=== PATIENT | male | born 1980 | race Caucasian/White ===

== ENCOUNTER 2017-01-01 19:41 | Emergency (ER) ==
[2017-01-01 19:54] VITALS: BP 140/77; BMI 48.7
[2017-01-01] MEDS ORDERED: PROTONIX IV IVP STA (19:56)
[2017-01-01] MEDS ORDERED: SODIUM CHLORIDE 1,000 ML IV STA (19:56)
[2017-01-01] MEDS ORDERED: ZOFRAN 4 MG/2 ML IVP STA (19:56)
--- NOTE | 2017-01-01 20:03 | ED.PDOC ---
General ED Provider: Dr. BRET SHEPPARD Chief Complaint: Abdominal Pain Stated Complaint: Patient is a 36 year old male who comes to the ER Complains of Upper bilatearal abdominal pain has been having some cough over the last month but denies any shortness of breath. Time Seen by Physician: 20:00 Mode of Arrival: Walk-In Information Source: Patient, Family Exam Limitations: No limitations Primary Care Provider: KIMBERLEY RILEY Nursing and Triage Documentation Reviewed and Agree: Yes Review of Systems - Review Of Systems Constitutional: Reports: No symptoms Eyes: Reports: No symptoms Ears, Nose, Mouth, Throat: Reports: No symptoms Respiratory: Reports: No symptoms Cardiac: Reports: No symptoms GI: Reports: Abdomen distended (feels blotted ), Abdominal pain, Nausea. Denies : Constipated, Diarrhea, Difficulty swallowing, Vomiting : Reports: No symptoms Musculoskeletal: Reports: No symptoms Skin: Reports: No symptoms Neurological: Reports: No symptoms Endocrine: Reports: No symptoms Hematologic/Lymphatic: Reports: No symptoms All Other Systems: Reviewed and Negative Past Medical History - Past Medical History Previously Healthy: Yes Endocrine: Reports: None Cardiovascular: Reports: None Respiratory: Reports: None Hematological: Reports: None Gastrointestinal: Reports: None Genitourinary: Reports: None Neuro/Psych: Reports: None Musculoskeletal: Reports: None Cancer: Reports: None - Surgical History General Surgical History: Reports: Other (RIGHT HEEL SURGRY. RIGHT SHOULDER DISLOCATION. ) - Family History Family History: Reports: Hypertension, Other (call stones, obesity ) - Social History Smoking Status: Current every day smoker Hx Substance Use: No Alcohol Screening: None - Immunizations Tetanus Shot up to Date: No Physical Exam - Physical Exam Appearance: Ill-appearing, Obese Ill-appearing: Moderate Pain Distress: Severe Eyes: JANETH, EOMI, Conjunctiva clear Neck: Supple Respiratory: Airway patent, Breath sounds clear, Breath sounds equal, Respirations nonlabored Cardiovascular: Pulses normal, Tachycardia GI/: Tender Skin: Warm, Dry Neurological: Sensation intact, Alert, Oriented Psychiatric: Anxious Interpretation - Radiology Interpretation Radiology Interpretation By: Radiologist Radiology Results: Positive Exam Interpreted: CT Scan Radiology Interpretation By: ED Physician Radiology Results: Positive Exam Interpreted: Portable CXR - [employer] Rate: Tachy Rhythm: Sinus Ectopy: None - EKG Interpretation Time of EKG #1: 23:03 Rate: Tachy Rhythm: Sinus Ectopy: None Interpretation: Anterior infact Age undetermined Procedures - Intubation Indication: Present: Respiratory Insufficiency Time of Intubation: 01:00 Medications: Yes: Norcuron, Succinylcholine, Versed, Propofol Type of Tube Used: Endotracheal Tube Size: 7.5 Cricoid Pressure Used: No Tube Hernandez Used: Yes Position of Tube at Lip: 20 Number of Attempts: 1 Suction Used: No Glidescope Used: No CO2 Detector Used: Yes Lung Sounds Equal Bilaterally: Yes Intubation Complications: Present: No complications Tube Inserted By: Mahin Cristobal Tube Placement Verified by X-ray: Yes (2 cm above the amado ) Re-Evaluation - Re-Evaluation Time of Re-Evaluation: 12:15 Status: Worse (ABG worse. ) - Re-Evaluation Time of Re-Evaluation: 01:54 Status: Improved (Resting comfortably on the VENT ) Vital Signs Stable: Yes (T 96.5, BP 97/64, Sat 100%, 95 ) Physician Notification - Case Discussed Physician Notified: Dr BASS Time of Notification: 01:16 (Accepted to ICU ) Critical Care Note - Critical Care Note Total Time (mins): 120 Course - Course Hematology/Chemistry: 01/01/17 20:00 01/01/17 20:00 Orders, Labs, Meds: Lab Review 01/01/17 01/01/17 01/01/17 20:00 22:00 22:16 WBC 19.64 H RBC 4.54 L Hgb 13.1 L Hct 39.4 L MCV 86.8 MCH 28.9 MCHC 33.2 RDW Coeff of Joselin 13.8 Plt Count 312 Immature Gran % (Auto) 0.6 Neut % (Auto) 83.7 Lymph % (Auto) 8.9 L Nolan % (Auto) 6.2 Eos % (Auto) 0.2 Baso % (Auto) 0.4 Immature Gran # (Auto) 0.1 Neut # 16.5 H Lymph # 1.7 Nolan # 1.2 Eos # 0.0 Baso # 0.1 D-Dimer (Manual) 384.95 Puncture Site Rb O2 Saturation 51.0 L ABG pH 7.253 L* ABG pCO2 64.8 H ABG pO2 32.0 L* ABG HCO3 28.6 H ABG Total CO2 31 H ABG Base Excess 1 Talon Test + O2 Delivery Device FiO2 % 21.0 Sodium 134 L Potassium 4.3 Chloride 98 Carbon Dioxide 27 Anion Gap 13.3 BUN 13 Creatinine 1.00 Estimated GFR (MDRD) 84.00 BUN/Creatinine Ratio 13.00 Glucose 166 H Lactic Acid 9.9 Calcium 9.1 Total Bilirubin 2.01 H Direct Bilirubin 0.72 H AST 45 H ALT 61 Alkaline Phosphatase 71 Total Protein 7.2 Albumin 3.4 Globulin 3.8 Albumin/Globulin Ratio 0.89 Amylase 30 Lipase 4 L Procalcitonin 0.30 01/02/17 00:15 WBC RBC Hgb Hct MCV MCH MCHC RDW Coeff of Joselin Plt Count Immature Gran % (Auto) Neut % (Auto) Lymph % (Auto) Nolan % (Auto) Eos % (Auto) Baso % (Auto) Immature Gran # (Auto) Neut # Lymph # Nolan # Eos # Baso # D-Dimer (Manual) Puncture Site Rrad O2 Saturation 100.0 ABG pH 7.349 L ABG pCO2 52.4 H ABG pO2 418.0 H ABG HCO3 28.8 H ABG Total CO2 30 H ABG Base Excess 3 H Talon Test + O2 Delivery Device Vent FiO2 % 100.0 Sodium Potassium Chloride Carbon Dioxide Anion Gap BUN Creatinine Estimated GFR (MDRD) BUN/Creatinine Ratio Glucose Lactic Acid Calcium Total Bilirubin Direct Bilirubin AST ALT Alkaline Phosphatase Total Protein Albumin Globulin Albumin/Globulin Ratio Amylase Lipase Procalcitonin Orders Category Date Time Status ABG DRAW REQUEST Stat CARDIO 01/01/17 22:16 Ordered ABG DRAW REQUEST Stat CARDIO 01/01/17 22:56 Ordered BIPAP Routine CARDIO 01/03/17 23:20 Ordered EKG-(ED ONLY) Stat CARDIO 01/01/17 22:18 Ordered NEBULIZER TREATMENT Stat CARDIO 01/01/17 22:16 Ordered VENTILATOR Stat CARDIO 01/02/17 00:41 Ordered ED IV/MEDIPORT/POWERPORT .ONCE EMERGENCY 01/01/17 19:56 Active Mitchell [ED CATHETER INSERTION AND CARE] .ONCE EMERGENCY 01/02/17 01:53 Active ABG DAILY@0600 LAB 01/02/17 06:00 Ordered ABG DAILY@0600 LAB 01/03/17 06:00 Ordered ABG DAILY@0600 LAB 01/04/17 06:00 Ordered ABG DAILY@0600 LAB 01/05/17 06:00 Ordered ABG Stat LAB 01/01/17 22:16 Completed ABG Stat LAB 01/01/17 22:56 Completed AMYLASE Stat LAB 01/01/17 20:00 Completed BILIRUBIN,DIRECT Stat LAB 01/01/17 20:00 Completed BLOOD CULTURE Stat LAB 01/01/17 22:00 Received CBC W/ AUTO DIFF Stat LAB 01/01/17 20:00 Completed COMPREHENSIVE METABOLIC PANEL Stat LAB 01/01/17 20:00 Completed D-DIMER Stat LAB 01/01/17 20:00 Completed LACTIC ACID Stat LAB 01/01/17 22:00 Completed LIPASE Stat LAB 01/01/17 20:00 Completed PROCALCITONIN Stat LAB 01/01/17 22:00 Completed URINALYSIS C & S IF INDICATED Stat LAB 01/01/17 19:56 Uncollected 0.9 % Sodium Chloride [Saline Flush] MEDS 01/01/17 19:56 Ordered 1 syr IVF PRN PRN Ceftriaxone Sodium [Rocephin] MEDS 01/01/17 22:09 Discontinued 1 gm .ROUTE .STK-MED ONE Ceftriaxone Sodium [Rocephin] 1 gm MEDS 01/01/17 21:54 Discontinued 0.9 % Sodium Chloride [Sodium Chloride] 50 ml IV ONCE Doxycycline Hyclate Inj [Doxy-100] 100 mg MEDS 01/01/17 21:54 Discontinued 0.9 % Sodium Chloride [Sodium Chloride] 250 ml IV ONCE Fentanyl Amp [Sublimaze] MEDS 01/02/17 00:42 Discontinued 100 mcg .ROUTE .STK-MED ONE Fentanyl Amp [Sublimaze] MEDS 01/02/17 00:37 Discontinued 100 mcg IVP ONCE STA Hydromorphone HCl [Dilaudid 1 mg/ml Syringe] MEDS 01/01/17 20:32 Discontinued 1 mg IVP ONCE STA Ipratropium/Albuterol Neb [Duoneb] MEDS 01/01/17 22:16 Discontinued 1 vial NEB ONCE STA Ketorolac Tromethamine [Toradol] MEDS 01/01/17 20:33 Discontinued 30 mg IVP ONCE STA Lidocaine HCl [Uro-Jet] MEDS 01/02/17 01:53 Discontinued 10 ml MUCOUSMEMB ONCE STA Midazolam HCl Inj [Versed] MEDS 01/02/17 00:41 Discontinued 5 mg .ROUTE .STK-MED ONE Midazolam HCl Inj [Versed] MEDS 01/02/17 00:37 Discontinued 5 mg IVP ONCE STA Ondansetron HCl/Pf [Zofran 4 mg/2 ml] MED 01/01/17 19:56 Discontinued 4 mg IVP ONCE STA Pantoprazole Sodium [Protonix IV] MED 01/01/17 19:56 Discontinued 40 mg IVP ONCE STA Premix Vial [Premix Infusion 100 ml Vial] 1 vial [facility] 01/02/17 02:00 Ordered Propofol Inj [Diprivan 100 ml Vial] 1,000 mg IV 100 mcg/kg/min Propofol Inj [Diprivan 100 ml Vial] 100 ml MED 01/02/17 01:56 Discontinued IV .STK-MED Sodium Chloride 0.9% [Sodium Chloride] 1,000 ml MED 01/01/17 19:56 Discontinued IV BOLUS Succinylcholine Chloride [Anectine] MED 01/02/17 00:37 Discontinued 120 mg IVP ONCE STA Succinylcholine Chloride [Anectine] [facility] 01/02/17 00:41 Discontinued 20 mg .ROUTE .STK-MED ONE Succinylcholine Chloride [Anectine] MED 01/02/17 00:37 Discontinued 50 mg IVP ONCE STA Vecuronium [place] [Norcuron] [facility] 01/02/17 00:42 Discontinued 10 mg .ROUTE .STK-MED ONE Vecuronium [place] [Norcuron] [facility] 01/02/17 02:01 Stat 3 mg IVP ONCE STA Vecuronium [place] [Norcuron] [facility] 01/02/17 00:37 Discontinued 5 mg IVP ONCE STA Vecuronium [place] [Norcuron] [facility] 01/02/17 02:09 Stat 7 mg IVP ONCE STA CHEST, 1V AP ONLY Stat RADS 01/02/17 00:[address] ABD/PEL WO RENAL STONE PROT Stat RADS 01/01/17 19:[address] CHEST W/O CONTRAST Stat RADS 01/01/17 20:04 Completed Medications Generic Name Dose Route Start Last Admin Trade Name Freq PRN Reason Stop Dose Admin Propofol 1,000 mg/ Sterile 100 mls @ 89.81 mls/hr 01/02/17 02:00 01/02/17 02: 02 Water IV 50 mcg/kg/min .Q1H7M JACINDA 44.9 mls/hr Protocol Administration 100 MCG/KG/MIN Sodium Chloride 1 syr 01/01/17 19:56 Saline Flush IVF PRN PRN To flush IV Discontinued Medications Generic Name Dose Route Start Last Admin Trade Name Eulalia PRN Reason Stop Dose Admin Albuterol/Ipratropium 1 vial 01/01/17 22:16 01/01/17 22:44 Duoneb NEB 01/01/17 22:17 1 vial ONCE STA Administration Fentanyl Citrate 100 mcg 01/02/17 00:37 01/02/17 01:00 Sublimaze IVP 01/02/17 00:38 100 mcg ONCE STA Administration Hydromorphone HCl 1 mg 01/01/17 20:32 01/01/17 20:39 Dilaudid 1 Mg/Ml Syringe IVP 01/01/17 20:33 1 mg ONCE STA Administration Sodium Chloride 1,000 mls @ 1,000 mls/hr 01/01/17 19:56 Sodium Chloride IV 01/01/17 20:55 BOLUS STA Ceftriaxone Sodium 1 gm/ 50 mls @ 75 mls/hr 01/01/17 21:54 01/01/17 22:23 Sodium Chloride IV 01/01/17 22:33 75 mls/hr ONCE STA Administration Doxycycline Hyclate 100 mg/ 250 mls @ 100 mls/hr 01/01/17 21:54 01/01/17 23: 51 Sodium Chloride IV 01/02/17 00:23 100 mls/hr ONCE STA Administration Ketorolac Tromethamine 30 mg 01/01/17 20:33 01/01/17 20:39 Toradol IVP 01/01/17 20:34 30 mg ONCE STA Administration Lidocaine HCl 10 ml 01/02/17 01:53 01/02/17 02:01 Uro-Jet MUCOUSMEMB 01/02/17 01:54 10 ml ONCE STA Administration Midazolam HCl 5 mg 01/02/17 00:37 01/02/17 01:00 Versed IVP 01/02/17 00:38 5 mg ONCE STA Administration Ondansetron HCl 4 mg 01/01/17 19:56 01/01/17 20:19 Zofran 4 Mg/2 Ml IVP 01/01/17 19:57 4 mg ONCE STA Administration Pantoprazole Sodium 40 mg 01/01/17 19:56 01/01/17 20:18 Protonix Iv IVP 01/01/17 19:57 40 mg ONCE STA Administration Succinylcholine Chloride 50 mg 01/02/17 00:37 Anectine IVP 01/02/17 00:38 ONCE STA Succinylcholine Chloride 120 mg 01/02/17 00:37 01/02/17 01:05 Anectine IVP 01/02/17 00:38 120 mg ONCE STA Administration Vecuronium [place] 5 mg 01/02/17 00:37 01/02/17 01:00 Norcuron IVP 01/02/17 00:38 5 mg ONCE STA Administration Vecuronium [place] 3 mg 01/02/17 02:01 Norcuron IVP 01/02/17 02:02 ONCE STA Vecuronium [place] 7 mg 01/02/17 02:09 Norcuron IVP 01/02/17 02:10 ONCE STA Vital Signs: Temp Pulse Resp BP Pulse Ox 01/01/17 23:40 98 01/01/17 22:20 98.5 F 01/01/17 19:42 98.9 F 124 H 20 140/77 92 L Departure - Departure Time of Disposition: 02:11 Disposition: TSF SHORT-TRM HOSP Discharge Problem: Abdominal pain Pneumonia Qualifiers: Pneumonia type: due to unspecified organism Laterality: bilateral Lung location : lower lobe of lung Qualifier Code: (J18.9) Pneumonia, unspecified organism Respiratory failure Qualifiers: Chronicity: acute Respiratory failure complication: hypoxia and hypercapnia Qualifier Code: (J96.01) Acute respiratory failure with hypoxia Condition: Fair Pt referred to PMD for follow-up: No Allergies/Adverse Reactions: Allergies No Known Allergies Allergy (Unverified 01/01/17 19:51) Home Medications: Ambulatory Orders 1 [No Reported Medications] 01/01/17
[2017-01-01 20:09] LABS: BASOPHILS # (AUTO) 0.1 K/uL (0-0.2); BASOPHILS % (AUTO) 0.4 % (0.0-3.0); EOSINOPHILS % (AUTO) 0.2 % (0.0-7.0); HEMATOCRIT 39.4 % (42.0-52.0); HEMOGLOBIN 13.1 g/dl (14.0-18.0); IMMATURE GRANULOCYTE % (AUTO) 0.6 % (0.0-5.0); LYMPHOCYTES # (AUTO) 1.7 K/uL (0.60-3.4); LYMPHOCYTES % (AUTO) 8.9 (10.0-50.0); MEAN CORPUSCULAR HEMOGLOBIN 28.9 pg (27.0-31.0); MEAN CORPUSCULAR HGB CONC 33.2 (31.8-35.4); MEAN CORPUSCULAR VOLUME 86.8 fl (80.0-94.0); MONOCYTES # (AUTO) 1.2 K/uL (0.4-2.0); MONOCYTES % (AUTO) 6.2 (0-10); NEUTROPHILS # (AUTO) 16.5 K/ul (2.0-6.9); NEUTROPHILS % (AUTO) 83.7; PLATELET COUNT 312 10^3/uL (140-440); RED BLOOD COUNT 4.54 10^6/ul (4.70-6.10); WHITE BLOOD COUNT 19.64 K/ul (4.2-10.2)
[2017-01-01 20:28] LABS: ALBUMIN 3.4 g/dL (3.4-5.0); ALBUMIN/GLOBULIN RATIO 0.89; ANION GAP 13.3; BILIRUBIN,TOTAL 2.01 mg/dL (0.00-1.20); CALCIUM 9.1 mg/dL (8.2-10.2); POTASSIUM 4.3 mmol/L (3.5-5.1); TOTAL PROTEIN 7.2 g/dL (6.4-8.2)
[2017-01-01] MEDS ORDERED: DILAUDID 1 MG/ML SYRINGE IVP STA (20:32)
[2017-01-01] MEDS ORDERED: TORADOL IVP STA (20:33)
--- NOTE | 2017-01-01 21:45 | CT ---
EXAM: CT scan of the chest without contrast HISTORY: Elevated white count, upper abdominal pain TECHNIQUE: Helical imaging of the chest was performed without contrast. 5 mm thin axial images and coronal and sagittal reconstructions were provided for interpretation. FINDINGS: The heart is normal size. No mediastinal masses are seen. There is consolidative change seen within the lungs bilaterally within the lower and upper lobes of the lungs. There are scattere d air bronchograms. There is no pleural separation. The no lytic or blastic lesions are seen within the osseous structures. There is no pleural effusion. IMPRESSION: Bilateral pneumonia.
[2017-01-01] MEDS ORDERED: DOXY-100 100 MG in SODIUM CHLORIDE 250 ML IV STA (21:54)
[2017-01-01] MEDS ORDERED: ROCEPHIN 1 GM in SODIUM CHLORIDE 50 ML IV STA (21:54)
--- NOTE | 2017-01-01 21:54 | CT ---
EXAM: CT abdomen pelvis without contrast HISTORY: Abdominal pain, elevated WBC , renal stone protocol COMPARISON: None. TECHNIQUE: Serial axial images of the abdomen pelvis were performed from the lung bases through the inferior pelvis without contrast. These were viewed in multiple planes. FINDINGS: Images lower thorax show dense consolidation or probable pneumonia involving the right lower lobe wi th additional small area of opacity or pneumonia left lower lobe. Abdomen. There is no intrperitoneal free air. The liver, spleen, pancreas, adrenal glands are unremarkable. There is no renal calculus. No obstruction of either kidney or ureter is seen. There is no cholel ithiasis or biliary ductal dilatation seen.. Gallbladder prominently distended There is no ascites . There is no small bowel obstruction or bowel wall thickening. The appendix is normal. There is d ense stool seen throughout portions of the colon. Pelvis. No free fluid. No adenopathy. Small fat containing left inguinal hernia. Skeletal structures There is degenerate disc disease and disc space narrowing L4-L5, L5 S1 level. There is spondylitic changes of the lower thoracic spine with degenerate disc disease. Impression 1. No renal calcification or obstruction of either kidney or ureter. 2. Gallbladder prominently distended without gallstone or biliary duct dilatation 3. No bowel obstruction. Appendix normal. Dense stool seen throughout portions of the colon, poss ible mild constipation. 4. There is pulmonary consolidation or opacity in the right greater left lower lobe suspicious for pneumonia. Follow-up chest x-ray or CT scanning suggested further assess. 5. Degenerate changes of the L4-L5 and L5 S1 disc.
[2017-01-01] MEDS ORDERED: ROCEPHIN ONE (22:09)
[2017-01-01] MEDS ORDERED: DUONEB NEB STA (22:16)
[2017-01-01 22:20] VITALS: TEMP 98.5
[2017-01-01 22:47] LABS: ABG PH 7.253 (7.35-7.45)
[2017-01-01 22:48] LABS: ABG BASE EXCESS 1 (-2.0-2.0); ABG HCO3 28.6 (22.0-26.0); ABG PCO2 64.8 mmHg (35-45); ABG TCO2 31 (22.0-28.0)
[2017-01-02] MEDS ORDERED: VERSED IVP STA (00:37)
[2017-01-02] MEDS ORDERED: NORCURON IVP STA ×3 (00:37→02:09)
[2017-01-02] MEDS ORDERED: ANECTINE IVP STA ×2 (00:37)
[2017-01-02] MEDS ORDERED: SUBLIMAZE IVP STA (00:37)
[2017-01-02] MEDS ORDERED: ANECTINE ONE (00:41)
[2017-01-02] MEDS ORDERED: VERSED ONE (00:41)
[2017-01-02] MEDS ORDERED: NORCURON ONE ×2 (00:42→04:21)
[2017-01-02] MEDS ORDERED: SUBLIMAZE ONE (00:42)
--- NOTE | 2017-01-02 01:35 | DI ---
EXAM: Portable chest HISTORY: Tube placement COMPARISON: None. FINDINGS: The lung bases are excluded from view.. Endotracheal tube seen at the level of the clavi cular heads.. The pulmonary vasculature is congested. There is right perihilar infiltrate. IMPRESSION: Satisfactory appearing endotracheal tube appear
[2017-01-02 01:45] LABS: ABG BASE EXCESS 3 (-2.0-2.0); ABG HCO3 28.8 (22.0-26.0); ABG PCO2 52.4 mmHg (35-45); ABG PH 7.349 (7.35-7.45); ABG TCO2 30 (22.0-28.0)
[2017-01-02] MEDS ORDERED: URO-JET MUCOUSMEMB STA (01:53)
[2017-01-02] MEDS ORDERED: DIPRIVAN 100 ML VIAL 100 ML IV ONE (01:56)
--- NOTE | 2017-01-02 01:59 | ED.PDOC ---
Procedures - Intubation Indication: Present: Respiratory Insufficiency Time of Intubation: 01:02 ( direct laryngoscopy X1, atraumatic intubation 7.5ETT 20cm @teeth.) Medications: Yes: Norcuron (Norcuron 10mg @0113), Succinylcholine (Anectine 120mg @ 0100), Versed (versed 5mg 0100, ), Propofol (prop0f), Other (Fentanyl 50ug @0100) Type of Tube Used: Endotracheal Tube Size: 7.5 Cricoid Pressure Used: No Tube Hernandez Used: Yes Position of Tube at Lip: 20cm Number of Attempts: 1 CO2 Detector Used: Yes Intubation Complications: Present: No complications Tube Inserted By: Mahin Cristobal CRNA Tube Placement Verified by X-ray: Yes Conscious Sedation - Pre-op Assessment Weight: 330 lb Surgical History: RIGHT HEEL SURGRY . RIGHT SHOULDER DISLOCATION. - Medical History Past Medical History: None - Physical Exam Heart Rate/Rhythm: Regular Rate
[2017-01-02] MEDS ORDERED: DIPRIVAN 100 ML VIAL 1,000 MG in PREMIX INFUSION 100 ML VIAL 1 VIAL IV SCH (02:00)
--- NOTE | 2017-01-02 02:01 | ED.PDOC ---
Procedures - IV/Art Line Insertion Location: Lt wrist Type of Line: Other (Arterial stick for ABG) Conscious Sedation - Pre-op Assessment Weight: 330 lb Surgical History: RIGHT HEEL SURGRY . RIGHT SHOULDER DISLOCATION. - Medical History Past Medical History: None - Physical Exam Heart Rate/Rhythm: Regular Rate
[2017-01-02 02:12] LABS: BILIRUBIN,URINE 1+ (NEGATIVE); KETONES,URINE Negative (NEGATIVE); LEUKOCYTE ESTERASE ,URINE Negative (NEGATIVE); NITRITE,URINE Negative (NEGATIVE); PROTEIN,URINE 2+ (NEGATIVE); URINE, BLOOD Trace-lysed (NEGATIVE)
[2017-01-02 02:15] LABS: ADD URINE MICROSCOPIC YES
[2017-01-02 04:15] LABS: FI02 7.2 %
[2017-01-02 04:17] LABS: ABG BASE EXCESS 3 (-2.0-2.0); ABG HCO3 30.2 (22.0-26.0); ABG PCO2 72.1 mmHg (35-45)
[2017-01-02 04:18] LABS: ABG TCO2 32 (22.0-28.0)
== END 2017-01-02 02:15 | disposition short-term general hospital (02) ==
LOC: ED 19:41
DX: J18.9 Pneumonia, unspecified organism (principal); J96.01 Acute respiratory failure with hypoxia; R10.12 Left upper quadrant pain; R10.11 Right upper quadrant pain; R00.0 Tachycardia, unspecified; E66.9 Obesity, unspecified; F17.210 Nicotine dependence, cigarettes, uncomplicated
CPT/HCPCS: 36415; 74176; 80053; 81001; 82150; 82248; 82803; 83605; 83690; 84145; 85025; 85379; 87040; 93005; 93010; 94640; 94660; 96361; 96365; 96367; 96368; 96375; 99291

== ENCOUNTER 2017-01-02 02:29 | Outpatient (CLI) ==
[2017-01-01 19:54] VITALS: BMI 48.7
== END 2017-01-02 02:30 | disposition home or self-care (01) ==
LOC: AMBL 02:29
PROVIDERS: ATTEND Internal Medicine Geriatric Medicine
DX: J44.1 Chronic obstructive pulmonary disease with (acute) exacerbation (principal); I50.9 Heart failure, unspecified; E66.9 Obesity, unspecified

== ENCOUNTER 2017-01-16 11:13 | Outpatient (CLI) ==
[2017-01-16 11:31] LABS: BASOPHILS # (AUTO) 0.1 K/uL (0-0.2); BASOPHILS % (AUTO) 1.1 % (0.0-3.0); EOSINOPHILS # (AUTO) 0.4 K/ul (0.0-0.7); EOSINOPHILS % (AUTO) 4.3 % (0.0-7.0); HEMATOCRIT 38.8 % (42.0-52.0); HEMOGLOBIN 12.9 g/dl (14.0-18.0); IMMATURE GRANULOCYTE % (AUTO) 0.5 % (0.0-5.0); LYMPHOCYTES # (AUTO) 2.2 K/uL (0.60-3.4); LYMPHOCYTES % (AUTO) 24.6 (10.0-50.0); MEAN CORPUSCULAR HEMOGLOBIN 28.4 pg (27.0-31.0); MEAN CORPUSCULAR HGB CONC 33.2 (31.8-35.4); MEAN CORPUSCULAR VOLUME 85.5 fl (80.0-94.0); MONOCYTES # (AUTO) 0.7 K/uL (0.4-2.0); MONOCYTES % (AUTO) 8.4 (0-10); NEUTROPHILS # (AUTO) 5.4 K/ul (2.0-6.9); NEUTROPHILS % (AUTO) 61.1; PLATELET COUNT 623 10^3/uL (140-440); RED BLOOD COUNT 4.54 10^6/ul (4.70-6.10); WHITE BLOOD COUNT 8.78 K/ul (4.2-10.2)
[2017-01-16 11:47] LABS: ALBUMIN 3.6 g/dL (3.4-5.0); ALBUMIN/GLOBULIN RATIO 0.86; ANION GAP 13.8; BILIRUBIN,TOTAL 0.74 mg/dL (0.00-1.20); BUN/CREATININE RATIO 15.74; CALCIUM 9.6 mg/dL (8.2-10.2); CREATININE 1.08 mg/dL (0.60-1.10); POTASSIUM 3.8 mmol/L (3.5-5.1); TOTAL PROTEIN 7.8 g/dL (6.4-8.2)
== END 2017-01-16 11:14 | disposition home or self-care (01) ==
LOC: LAB 11:13
PROVIDERS: ATTEND Emergency Medicine
DX: I10 Essential (primary) hypertension (principal); E66.9 Obesity, unspecified
CPT/HCPCS: 36415; 80053; 85025

== ENCOUNTER 2017-01-22 09:08 | Emergency (ER) ==
[2017-01-22 09:27] VITALS: BP 89/50; TEMP 97.2; BMI 56.5
[2017-01-22] MEDS ORDERED: SODIUM CHLORIDE 1,000 ML IV STA ×2 (10:27→12:15)
[2017-01-22 10:34] LABS: BASOPHILS # (AUTO) 0.1 K/uL (0-0.2); BASOPHILS % (AUTO) 0.5 % (0.0-3.0); EOSINOPHILS # (AUTO) 0.4 K/ul (0.0-0.7); EOSINOPHILS % (AUTO) 2.4 % (0.0-7.0); HEMATOCRIT 41.9 % (42.0-52.0); HEMOGLOBIN 13.7 g/dl (14.0-18.0); IMMATURE GRANULOCYTE % (AUTO) 0.3 % (0.0-5.0); LYMPHOCYTES # (AUTO) 1.7 K/uL (0.60-3.4); LYMPHOCYTES % (AUTO) 11.9 (10.0-50.0); MEAN CORPUSCULAR HEMOGLOBIN 28.5 pg (27.0-31.0); MEAN CORPUSCULAR HGB CONC 32.7 (31.8-35.4); MEAN CORPUSCULAR VOLUME 87.3 fl (80.0-94.0); MONOCYTES # (AUTO) 0.8 K/uL (0.4-2.0); MONOCYTES % (AUTO) 5.7 (0-10); NEUTROPHILS # (AUTO) 11.6 K/ul (2.0-6.9); NEUTROPHILS % (AUTO) 79.2; PLATELET COUNT 496 10^3/uL (140-440)
[2017-01-22] MEDS ORDERED: ADRENALIN 1:1000 SDV IM STA (10:42)
[2017-01-22] MEDS: EPINEPHRINE 1:1,000 AMP ONE ×3 (10:54→11:37)
[2017-01-22 11:27] LABS: ALBUMIN 3.8 g/dL (3.4-5.0); ALBUMIN/GLOBULIN RATIO 0.97; ANION GAP 20.1; BILIRUBIN,TOTAL 0.67 mg/dL (0.00-1.20); BUN/CREATININE RATIO 9.13; CALCIUM 9.4 mg/dL (8.2-10.2); POTASSIUM 5.1 mmol/L (3.5-5.1); TOTAL PROTEIN 7.7 g/dL (6.4-8.2); TROPONIN I 0.022 ng/ml (0.0000-0.4000)
[2017-01-22 11:30] LABS: CREATININE 5.8 mg/dL (0.60-1.10)
[2017-01-22 11:31] LABS: CREATINE KINASE MB 11.9 ng/ml (0.0-3.6)
[2017-01-22] MEDS ORDERED: SOLU-CORTEF 250 MG IVP STA (12:15)
[2017-01-22] MEDS ORDERED: PRIMAXIN 500 MG in SODIUM CHLORIDE 100 ML IV STA (12:35)
--- NOTE | 2017-01-22 12:59 | DI ---
EXAM: Single view of the chest. History: Cough. Comparison: Chest radiograph 01/02/2017 Findings: Portable projection accentuates heart size. Mostly resolved bilateral lung infiltrates. No definite acute infiltrates are seen. No pneumothorax and no definite pleural fluid. No acute o sseous abnormalities. Impression: No definite acute infiltrates.
--- NOTE | 2017-01-22 13:35 | ED.PDOC ---
General ED Provider: Dr. CYRIL HIDALGO Chief Complaint: Non-specific Complaint Stated Complaint: weakness, lethargy, hypotension Time Seen by Physician: 09:10 (D/C FROM [facility] ICU 2 WEEKS AGO ) Mode of Arrival: Walk-In Information Source: Patient Exam Limitations: No limitations [facility] and Triage Documentation Reviewed and Agree: Yes Miscellaneous Complaint Exam - Complex/Multi-System Complaint/Exam Onset/Duration: PNEUMONIA STATUS INTUBATION 2 WEEKS AGO Symptoms Are: Still present (THIS MORNING HYPOTENSIVE LETHARGIC) Episodes Lasting: Hours Initial Severity: Moderate Current Severity: Moderate Location of Pain: ABDOMEN Pain Radiates to: NO Associated Signs and Symptoms: Reports: Decreased responsiveness (BUT AROUSABLE HYPOTENSIVE ), Weakness, Cough. Denies: Confusion, Agitation, Dizziness, Syncope, Headache, Short of air, Wheezing, Hemoptysis, Chest pain, Palpitations , Edema, Nausea, Vomiting, Diarrhea, Abdominal pain, Back pain, Dysuria, Hematemesis, Melena, Decreased oral intake, Fever, Diaphoresis, Immunocompromised, Anticoagulation Therapy, Recent medication changes, Indwelling biomedical instrument technician, Prior MRSA, Prior VRE, Recent trauma, Remote trauma Respiratory Distress: None JVD Present: No Tachypnea Present: No Stridor Present: No Abdominal Findings: Present: Normal findings Glascow Coma Scale (see protocol): 15 Meningeal Signs Positive: No Focal Weakness: Present: None Focal Sensory Loss: Present: None Gait: Unable Gag Reflex Present: No Babinski Sign: Negative Right, Negative Left Differential Diagnosis: Aspiration Quality Indicators for Cardiac Chest Pain: EKG in 10min. Quality Indicators for AMI: EKG in 10min. Quality Indicator For Non-Traumatic Chest Pain/Syncope: EKG Performed Review of Systems - Review Of Systems Constitutional: Reports: Weakness Eyes: Reports: No symptoms Ears, Nose, Mouth, Throat: Reports: No symptoms Respiratory: Reports: No symptoms Cardiac: Reports: No symptoms GI: Reports: No symptoms : Reports: No symptoms Musculoskeletal: Reports: No symptoms Skin: Reports: No symptoms Neurological: Reports: No symptoms Endocrine: Reports: No symptoms Hematologic/Lymphatic: Reports: No symptoms All Other Systems: Reviewed and Negative Past Medical History - Past Medical History Previously Healthy: Yes Endocrine: Reports: None Cardiovascular: Reports: None Respiratory: Reports: None Hematological: Reports: None Gastrointestinal: Reports: None Genitourinary: Reports: None Neuro/Psych: Reports: None Musculoskeletal: Reports: None Cancer: Reports: None - Surgical History General Surgical History: Reports: Other (RIGHT HEEL SURGRY. RIGHT SHOULDER DISLOCATION. ) - Family History Family History: Reports: Hypertension, Other (call stones, obesity ) - Social History Smoking Status: Current every day smoker, Light tobacco smoker Hx Substance Use: No Alcohol Screening: None Physical Exam - Physical Exam Appearance: Ill-appearing, No pain distress, Well-nourished Eyes: JANETH, EOMI, Conjunctiva clear ENT: Ears normal, Nose normal, Oropharynx normal Respiratory: Airway patent, Breath sounds clear, Breath sounds equal, Respirations nonlabored Cardiovascular: RRR, Pulses normal, No rub, No murmur GI/: Soft, Nontender, No masses, Bowel sounds normal, No Organomegaly Musculoskeletal: Normal strength, ROM intact, No edema, No calf tenderness Skin: Warm, Dry, Normal color Neurological: Sensation intact, Motor intact, Reflexes intact, Cranial nerves intact, Alert, Oriented Psychiatric: Affect appropriate, Mood appropriate Interpretation - Radiology Interpretation Radiology Interpretation By: Radiologist Physician Notification - Case Discussed Physician Notified: JOSHUA SMART Time of Notification: 13:39 Critical Care Note - Critical Care Note Total Time (mins): 0 Course - Course Hematology/Chemistry: 01/22/17 10:25 01/22/17 10:25 Orders, Labs, Meds: Lab Review 01/22/17 10:25 WBC 14.60 H RBC 4.80 Hgb 13.7 L Hct 41.9 L MCV 87.3 MCH 28.5 MCHC 32.7 RDW Coeff of Joselin 13.9 Plt Count 496 H Immature Gran % (Auto) 0.3 Neut % (Auto) 79.2 Lymph % (Auto) 11.9 Sibley % (Auto) 5.7 Eos % (Auto) 2.4 Baso % (Auto) 0.5 Immature Gran # (Auto) 0.1 Neut # 11.6 H Lymph # 1.7 Sibley # 0.8 Eos # 0.4 Baso # 0.1 Sodium 139 Potassium 5.1 Chloride 101 Carbon Dioxide 23 Anion Gap 20.1 BUN 53 H Creatinine 5.80 H* Estimated GFR (MDRD) 11.00 BUN/Creatinine Ratio 9.13 Glucose 144 H Lactic Acid 13.9 Calcium 9.4 Total Bilirubin 0.67 AST 19 ALT 31 Alkaline Phosphatase 72 Total Creatine Kinase 434 CK-MB (CK-2) 11.9 H* CK-MB (CK-2) % 2.88164 Troponin I 0.0220 Total Protein 7.7 Albumin 3.8 Globulin 3.9 Albumin/Globulin Ratio 0.97 Amylase 64 Lipase 28 Procalcitonin 0.21 Orders Category Date Time Status EKG-(ED ONLY) Stat CARDIO 01/22/17 10:07 Completed ED IV/MEDIPORT/POWERPORT .ONCE EMERGENCY 01/22/17 10:07 Active AMYLASE Stat LAB 01/22/17 10:25 Completed BLOOD CULTURE Stat LAB 01/22/17 10:25 Received CBC W/ AUTO DIFF Stat LAB 01/22/17 10:25 Completed COMPREHENSIVE METABOLIC PANEL Stat LAB 01/22/17 10:25 Completed CREATINE KINASE Stat LAB 01/22/17 10:25 Completed DRUG SCREEN (RAPID FOR ED) [DRUG SCREEN, URINE, RAPID] LAB 01/22/17 10:08 Uncollected Stat LACTIC ACID Stat LAB 01/22/17 10:25 Completed LIPASE Stat LAB 01/22/17 10:25 Completed PROCALCITONIN Stat LAB 01/22/17 10:25 Completed TROPONIN I Stat LAB 01/22/17 10:25 Completed URINALYSIS C & S IF INDICATED Stat LAB 01/22/17 10:06 Uncollected 0.9 % Sodium Chloride [Saline Flush] MEDS 01/22/17 10:07 Active 1 syr IVF PRN PRN Epinephrine Amp [Epinephrine 1:1,000 Amp] MEDS 01/22/17 10:48 Discontinued 1 mg .ROUTE .STK-MED ONE Epinephrine [Adrenalin 1:1000 Sdv] MEDS 01/22/17 10:42 Discontinued 0.3 mg IM ONCE STA Hydrocortisone Sod Succ/Pf [Solu-Cortef 250 mg] MEDS 01/22/17 12:15 Discontinued 250 mg IVP ONCE STA Imipenem/Cilastatin Sodium [Primaxin] 500 mg MEDS 01/22/17 12:35 Active 0.9 % Sodium Chloride [Sodium Chloride] 100 ml IV ONCE Sodium Chloride 0.9% [Sodium Chloride] 1,000 ml MEDS 01/22/17 10:27 Discontinued IV BOLUS Sodium Chloride 0.9% [Sodium Chloride] 1,000 ml MEDS 01/22/17 12:15 Discontinued IV BOLUS CHEST, 1V AP ONLY Stat RADS 01/22/17 12:34 Completed Medications Generic Name Dose Route Start Last Admin Trade Name Freq PRN Reason Stop Dose Admin Imipenem/Cilastatin Sodium 500 100 mls @ 100 mls/hr 01/22/17 12:35 01/22/17 12:54 mg/ Sodium Chloride IV 01/22/17 13:34 100 mls/hr ONCE STA Administration Sodium Chloride 1 syr 01/22/17 10:07 01/22/17 10:38 Saline Flush IVF 1 syr PRN PRN Administration To flush IV Discontinued Medications Generic Name Dose Route Start Last Admin Trade Name Freq PRN Reason Stop Dose Admin Epinephrine HCl 0.3 mg 01/22/17 10:42 01/22/17 10:55 Adrenalin 1:1000 Sdv IM 01/22/17 10:43 0.3 mg ONCE STA Administration Hydrocortisone Sodium Succinate 250 mg 01/22/17 12:15 01/22/17 12:24 Solu-Cortef 250 Mg IVP 01/22/17 12:16 250 mg ONCE STA Administration Sodium Chloride 1,000 mls @ 1,000 mls/hr 01/22/17 10:27 01/22/17 10:38 Sodium Chloride IV 01/22/17 11:26 1,000 mls/hr BOLUS STA Administration Sodium Chloride 1,000 mls @ 1,000 mls/hr 01/22/17 12:15 01/22/17 12:24 Sodium Chloride IV 01/22/17 13:14 1,000 mls/hr BOLUS STA Administration Vital Signs: Temp Pulse Resp BP Pulse Ox 01/22/17 09:10 97.2 F L 99 H 20 89/50 L 100 Departure - Departure Time of Disposition: 13:37 Disposition: TSF SHORT-TRM HOSP Discharge Problem: Renal failure Qualifiers: Renal failure chronicity: acute Acute renal failure type: unspecified Qualifier Code: (N17.9) Acute kidney failure, unspecified Instructions: Chronic Kidney Disease (ED) Condition: Good Pt referred to PMD for follow-up: No Additional Instructions: Please call your Family Physician as soon as possible to schedule a follow-up appointment. Allergies/Adverse Reactions: Allergies No Known Allergies Allergy (Verified 01/22/17 09:27) Disposition Discussed With: Patient
== END 2017-01-22 14:20 | disposition short-term general hospital (02) ==
LOC: ED 09:08
DX: N17.9 Acute kidney failure, unspecified (principal); R53.1 Weakness; I95.9 Hypotension, unspecified; F17.210 Nicotine dependence, cigarettes, uncomplicated
CPT/HCPCS: 36415; 80053; 82150; 82550; 82553; 83605; 83690; 84145; 84484; 85025; 87040; 93005; 93010; 96361; 96365; 96372; 96375; 99285

== ENCOUNTER 2017-01-22 14:19 | Outpatient (CLI) ==
[2017-01-22 09:27] VITALS: BMI 56.5
== END 2017-01-22 14:20 | disposition short-term general hospital (02) ==
LOC: AMBL 14:19
PROVIDERS: ATTEND Internal Medicine
DX: R42 Dizziness and giddiness (principal); I95.9 Hypotension, unspecified; R40.0 Somnolence

== ENCOUNTER 2017-01-29 17:39 | Outpatient (CLI) | END 2017-01-29 17:40 | disposition home or self-care (01) | LOC: CAR 17:39 | PROVIDERS: ATTEND Emergency Medicine | DX: G47.00 Insomnia, unspecified (principal); E66.9 Obesity, unspecified | CPT/HCPCS: 95810 ==

== ENCOUNTER 2017-02-09 15:41 | Outpatient (CLI) ==
[2017-02-09 16:08] LABS: ALBUMIN 3.7 g/dL (3.4-5.0); ALBUMIN/GLOBULIN RATIO 1.06; ANION GAP 13.4; BILIRUBIN,TOTAL 0.57 mg/dL (0.00-1.20); BUN/CREATININE RATIO 12.78; CALCIUM 9.4 mg/dL (8.2-10.2); CREATININE 1.33 mg/dL (0.60-1.10); POTASSIUM 4.4 mmol/L (3.5-5.1); TOTAL PROTEIN 7.2 g/dL (6.4-8.2)
== END 2017-02-09 15:42 | disposition home or self-care (01) ==
LOC: LAB 15:41
PROVIDERS: ATTEND Emergency Medicine
DX: E11.9 Type 2 diabetes mellitus without complications (principal); I10 Essential (primary) hypertension
CPT/HCPCS: 36415; 80053

== ENCOUNTER 2017-02-24 16:57 | Outpatient (CLI) | END 2017-02-24 16:58 | disposition home or self-care (01) | LOC: LAB 16:57 | PROVIDERS: ATTEND Nurse Practitioner Family | DX: E11.9 Type 2 diabetes mellitus without complications (principal) | CPT/HCPCS: 36415; 83036 ==

== ENCOUNTER 2017-06-09 10:03 | Inpatient (IN) ==
[2017-06-08 16:54] VITALS: BMI 60.7
[2017-06-09] MEDS ORDERED: NON-FORMULARY MEDICATION (Clonidine Hcl [Clonidine Hcl] 0.2 MG) PO SCH ×22 (10:15)
[2017-06-09] MEDS ORDERED: VANCOMYCIN 1 GM in SODIUM CHLORIDE 250 ML IV SCH (10:30)
[2017-06-09 10:36] LABS: BASOPHILS % (AUTO) 0.5 % (0.0-3.0); EOSINOPHILS # (AUTO) 0.2 K/ul (0.0-0.7); EOSINOPHILS % (AUTO) 2.6 % (0.0-7.0); HEMATOCRIT 38.7 % (42.0-52.0); HEMOGLOBIN 13.1 g/dl (14.0-18.0); IMMATURE GRANULOCYTE % (AUTO) 0.3 % (0.0-5.0); LYMPHOCYTES # (AUTO) 1.5 K/uL (0.60-3.4); LYMPHOCYTES % (AUTO) 17.4 (10.0-50.0); MEAN CORPUSCULAR HEMOGLOBIN 29.5 pg (27.0-31.0); MEAN CORPUSCULAR HGB CONC 33.9 (31.8-35.4); MEAN CORPUSCULAR VOLUME 87.2 fl (80.0-94.0); MONOCYTES # (AUTO) 0.5 K/uL (0.4-2.0); MONOCYTES % (AUTO) 5.6 (0-10); NEUTROPHILS # (AUTO) 6.5 K/ul (2.0-6.9); NEUTROPHILS % (AUTO) 73.6; PLATELET COUNT 336 10^3/uL (140-440); RED BLOOD COUNT 4.44 10^6/ul (4.70-6.10); WHITE BLOOD COUNT 8.87 K/ul (4.2-10.2)
[2017-06-09 10:55] LABS: ALBUMIN 3.2 g/dL (3.4-5.0); ALBUMIN/GLOBULIN RATIO 0.86; ANION GAP 12.3; BILIRUBIN,TOTAL 0.74 mg/dL (0.00-1.20); BUN/CREATININE RATIO 12.71; CALCIUM 9.2 mg/dL (8.2-10.2); CREATININE 1.18 mg/dL (0.60-1.10); POTASSIUM 4.3 mmol/L (3.5-5.1); TOTAL PROTEIN 6.9 g/dL (6.4-8.2)
[2017-06-09] MEDS: LIPITOR PO SCH (11:31)
[2017-06-09] MEDS: GLUCOPHAGE PO SCH ×2 (11:31→16:54)
[2017-06-09] MEDS: PROZAC PO SCH (11:32)
[2017-06-09] MEDS: PROTONIX PO SCH (11:32)
[2017-06-09] MEDS: ZESTRIL PO SCH (11:32)
[2017-06-09] MEDS: ROCEPHIN 1 GM in SODIUM CHLORIDE 50 ML IV SCH (11:46)
[2017-06-09] MEDS: CATAPRES PO SCH ×3 (12:32→21:47)
[2017-06-09] MEDS: VANCOMYCIN 1.25 GM in SODIUM CHLORIDE 250 ML IV SCH ×2 (14:39→21:47)
[2017-06-09] MEDS ORDERED: NYSTATIN PO SCH (15:00)
[2017-06-09] MEDS: NYSTOP POWDER TP SCH ×2 (15:57→21:47)
--- NOTE | 2017-06-09 16:21 | US ---
EXAM: Bilateral lower extremity venous doppler. HISTORY: Bilateral leg pain and swelling. COMPARISON: None available. TECHNIQUE: Multiple grayscale and color doppler images were obtained. FINDINGS: There is normal flow, compressibility and augmentation of flow within the right and left c ommon femoral, greater saphenous, profunda, femoral, popliteal, posterior tibial, anterior tibial and peroneal veins. IMPRESSION: No evidence for right or left lower extremity deep vein thrombosis at the levels examined.
[2017-06-09 17:58] LABS: TROPONIN I 0.014 ng/ml (0.0000-0.4000)
[2017-06-09 18:04] LABS: CREATINE KINASE MB 9.4 ng/ml (0.0-3.6)
[2017-06-10] MEDS ORDERED: VANCOMYCIN ONE (04:18)
[2017-06-10] MEDS: VANCOMYCIN 1.25 GM in SODIUM CHLORIDE 250 ML IV SCH ×3 (05:46→21:50)
[2017-06-10] MEDS: PROTONIX PO SCH (05:48)
[2017-06-10] MEDS ORDERED: TYLENOL PO PRN (09:13)
[2017-06-10] MEDS: PROZAC PO SCH (09:21)
[2017-06-10] MEDS: CATAPRES PO SCH ×3 (09:21→21:50)
[2017-06-10] MEDS: ZESTRIL PO SCH (09:22)
[2017-06-10] MEDS: LIPITOR PO SCH (09:22)
[2017-06-10] MEDS: GLUCOPHAGE PO SCH ×2 (09:22→17:06)
[2017-06-10] MEDS: ROCEPHIN 1 GM in SODIUM CHLORIDE 50 ML IV SCH (10:23)
[2017-06-10] MEDS: NYSTOP POWDER TP SCH ×3 (10:25→21:50)
[2017-06-11] MEDS: VANCOMYCIN 1.25 GM in SODIUM CHLORIDE 250 ML IV SCH (05:44)
[2017-06-11] MEDS: PROTONIX PO SCH (05:44)
--- NOTE | 2017-06-11 08:35 | PN ---
DATE OF SERVICE: 06/09/17 SUBJECTIVE: The patient was seen and examined in the office yesterday and came back today. The patient was supposed to be admitted yesterday but he signed out from the emergency room against medical advise and came back today with the right lower extremity swelling, redness and pain and palpitations. Agreed with the plan and evaluation from yesterdays office note. We will get that note and admit the patient. TIME SPENT: More than 70 minutes. BRENT
[2017-06-11] MEDS: LIPITOR PO SCH (10:01)
[2017-06-11] MEDS: ROCEPHIN 1 GM in SODIUM CHLORIDE 50 ML IV SCH (10:01)
[2017-06-11] MEDS: PROZAC PO SCH (10:01)
[2017-06-11] MEDS: NYSTOP POWDER TP SCH ×3 (10:02→20:42)
[2017-06-11] MEDS: CATAPRES PO SCH ×3 (10:02→20:36)
[2017-06-11] MEDS: ZESTRIL PO SCH (10:02)
[2017-06-11] MEDS: GLUCOPHAGE PO SCH ×2 (10:02→16:45)
[2017-06-11] MEDS: VANCOMYCIN 1 GM in SODIUM CHLORIDE 250 ML IV SCH ×2 (13:18→20:36)
[2017-06-12 04:43] LABS: BASOPHILS % (AUTO) 0.4 % (0.0-3.0); EOSINOPHILS # (AUTO) 0.3 K/ul (0.0-0.7); HEMATOCRIT 41.1 % (42.0-52.0); HEMOGLOBIN 13.9 g/dl (14.0-18.0); IMMATURE GRANULOCYTE % (AUTO) 0.5 % (0.0-5.0); LYMPHOCYTES % (AUTO) 21.1 (10.0-50.0); MEAN CORPUSCULAR HEMOGLOBIN 29.3 pg (27.0-31.0); MEAN CORPUSCULAR HGB CONC 33.8 (31.8-35.4); MEAN CORPUSCULAR VOLUME 86.7 fl (80.0-94.0); MONOCYTES # (AUTO) 0.7 K/uL (0.4-2.0); MONOCYTES % (AUTO) 7.3 (0-10); NEUTROPHILS # (AUTO) 6.5 K/ul (2.0-6.9); NEUTROPHILS % (AUTO) 67.7; PLATELET COUNT 339 10^3/uL (140-440); RED BLOOD COUNT 4.74 10^6/ul (4.70-6.10); WHITE BLOOD COUNT 9.65 K/ul (4.2-10.2)
[2017-06-12 05:09] LABS: ALBUMIN 3.3 g/dL (3.4-5.0); ALBUMIN/GLOBULIN RATIO 0.92; ANION GAP 10.3; BILIRUBIN,TOTAL 0.81 mg/dL (0.00-1.20); BUN/CREATININE RATIO 18.58; CALCIUM 9.4 mg/dL (8.2-10.2); CREATININE 1.13 mg/dL (0.60-1.10); POTASSIUM 4.3 mmol/L (3.5-5.1); TOTAL PROTEIN 6.9 g/dL (6.4-8.2)
[2017-06-12 05:25] VITALS: BP 133/76; TEMP 97.9
[2017-06-12] MEDS: VANCOMYCIN 1 GM in SODIUM CHLORIDE 250 ML IV SCH (05:47)
[2017-06-12] MEDS: PROTONIX PO SCH (05:47)
--- NOTE | 2017-06-12 09:24 | HOLTER ---
PATIENT INFORMATION AND COMMENTS Attending Physician: KURT RIZO Indications: PALPITATIONS __ Patient Medications: LIPITOR, CATAPRES, PROZAC, VANCOMYCIN, ZESTRIL, GLUCOPHAGE , NYSTATIN, PROTONIX, __ Pre-procedure Summary: Protocol: Standard Heart Rate Started: 06/09/17 1332 Minimum: 33 Weight: 411 Ended: 06/10/17 1326 Maximum:138 Height: 70" Duration: 23HRS, 54MIN Average: 79 _ INTERPRETATIONS/OBSERVATIONS: 1. BASIC RHYTHM: SINUS, RATE 33 BPM TO 140 BPM, AVERAGE 80 BPM 2. 8 PAUSES OF GREATER THAN 2.5 SECONDS NOTED. LONGEST PAUSE 4.1 SECONDS 3. RARE PAC'S AND PVC'S 4. NO ST-T WAVE CHANGES FROM BASELINE 5. ACTIVITY LOG NOT AVAILABLE MTDD
[2017-06-12] MEDS: ROCEPHIN 1 GM in SODIUM CHLORIDE 50 ML IV SCH (09:45)
[2017-06-12] MEDS: LIPITOR PO SCH (09:48)
[2017-06-12] MEDS: CATAPRES PO SCH (09:48)
[2017-06-12] MEDS: GLUCOPHAGE PO SCH (09:48)
[2017-06-12] MEDS: PROZAC PO SCH (09:48)
[2017-06-12] MEDS: ZESTRIL PO SCH (09:48)
[2017-06-12] MEDS: NYSTOP POWDER TP SCH (09:48)
--- NOTE | 2017-06-12 11:21 | PN ---
DATE OF SERVICE: 06/10/17 SUBJECTIVE: The patient was admitted with the right lower leg cellulitis and palpation. The patient is on the Holter Monitoring. Swelling and redness is a lot improved. REVIEW OF SYSTEMS: CONSTITUTIONAL: No fever, no chills. HEENT: Normal. ENDOCRINE: No weight gain, no weight loss. CVS: No angina symptoms. No CHF symptoms. No palpitations. No atypical chest pain for CAD. No shortness of breath. No PND, no orthopnea. RESPIRATORY: No cough, no hemoptysis. GI: No nausea, no vomiting. No abdominal pain. : No hematuria. No polyuria. MUSCULOSKELETAL:. No joint swelling. PSYCHIATRIC: Not anxious. No depression. No suicidal thoughts. No homicidal thoughts. SKIN: Intact. No rash. PHYSICAL EXAMINATION: V/S: Blood pressure 178/94, respiratory rate 20, heart rate 85, temperature 99.0 , saturation 95 on the room air. GENERAL: Morbidly obese man laying in the bed and not in distress. HEENT: Normocephalic, atraumatic. Mucosa dry. NECK: Supple. No JVD, no carotid bruit. No lymphadenopathy. LUNGS: Clear to auscultation. No rales or rhonchi. HEART: S1, S2 normal. No S3. No murmur, gallop or regurgitation. ABDOMEN: Soft, nontender. Bowel sounds active. No rigidity. No rebound or guarding. No CVA tenderness. EXTREMITIES: No clubbing, cyanosis or pedal edema. Right lower extremity swelling and redness is better. Still has some redness and some pain is there. MUSCULOSKELETAL: No joint swelling. NEUROLOGIC: Awake, alert, oriented times three. No focal deficit. LYMPHATIC: No lymph nodes palpable. SKIN: Intact. LABS: Sodium 136, potassium 4.3, chloride 100, bicarb 28, BUN 15, creatinine 1.18, glucose 313, WBC 8.87, hgb 13.1, hct 38.7, plt count 336 ASSESSMENT: 1. Right lower extremity cellulitis defused 2. Palpitations after having a moderate to severe sinus tachycardia with the rate of 182, 200 in the office. 3. Diabetes 4. Morbid obesity 5. Hypertension 6. Non-compliance PLAN: 1. Continue the Rocephin 1 gram daily 2. Vancomycin 1 gram daily 3. Keep the legs elevated 4. Followup with Holter monitoring results. TIME SPENT: More than 35 minutes MTDD
--- NOTE | 2017-06-15 10:26 | ECHO2D ---
Date of Exam: 06/12/17 Ordering Physician: KURT RIZO Room #: [id number] Reason for Echo: HEART PALPITATIONS, HYPERTENSION M-Mode Normal Adult Results LV Dimensions Normal Adult Results AoV Opening excursions >1.6 >1.6 LVEDD-base- 3.5-5.8 5.4 Ao root dimensions 2.0-3.7 3.7 LVESD-base- 3.1-4.6 L. Atrium dimensions 1.9-3.8 4.0 Post. Wall thickness 0.8-1.1 1.5 IV septum (thickness) 0.7-1.2 1.5 Post. Wall excursion 0.72-1.3 NORMAL Septal motion NORMAL Systolic motion R. Ventricular cavity 1.5-2.0 NORMAL LVEF 60% 66% Paradoxical septal wall motion NORMAL 2-D : 2-D M Mode Echocardiogram was performed using apical four chamber and left parasternal long and short axis views. Mitral, tricuspid and aortic valves appear to be normal. Contractility of the left ventricle seems to be normal, so is the cavity size. Left atrial cavity size and aortic root appear to be normal. There is no pericardial effusion. There is no thrombus noted in the left ventricular or left aortic cavity. No mitral valve prolapse noted. M-MODE: MV: NORMAL AV: NORMAL TV: NORMAL PV: CHAMBER SIZE: BORDERLINE ENLARGED LEFT ATRIAL CAVITY WALL MOTION: NORMAL PERICARDIUM: NORMAL INTERPRETATION: 1. MODERATE LEFT VENTRICULAR HYPERTROPHY WITH BORDERLINE ENLARGED LEFT ATRIAL CAVITY 2. NORMAL LEFT VENTRICULAR CONTRACTILITY 3. NORMAL VALVES MTDD
--- NOTE | 2017-07-19 15:58 | PN ---
DATE OF SERVICE: 06/11/17 SUBJECTIVE: The patient is admitted with palpitations, right lower extremity cellulitis and redness. Redness and swelling is better. No more palpitations. The patient is on the holter monitoring and is read by Dr. Crawley showing sinus rhythm, 48 to 140s and has a lot of PVCs. The patient had pauses of 8, 2.5 seconds and one pause of 4.1 second when she was sleeping. Activity log was not there. Given the number of pauses and the length of pauses, I think patient needs pacemaker but will discuss the case with Dr. Crawley. REVIEW OF SYSTEMS: CONSTITUTIONAL: No fever, no chills. HEENT: Normal. ENDOCRINE: No weight gain, no weight loss. CVS: No angina symptoms. No CHF symptoms. No palpitations. No atypical chest pain for CAD. No shortness of breath. No PND, no orthopnea. RESPIRATORY: No cough, no hemoptysis. GI: No nausea, no vomiting. No abdominal pain. : No hematuria. No polyuria. MUSCULOSKELETAL:. No joint swelling. PSYCHIATRIC: Not anxious. No depression. No suicidal thoughts. No homicidal thoughts. SKIN: Intact. No rash. PHYSICAL EXAMINATION: V/S: BP 121/74, respiratory rate 24, heart rate 101, temperature 98.6, saturation 94 on room air. HEENT: Normocephalic, atraumatic. Mucosa dry. Pallor positive. No icterus. NECK: Supple. No JVD, no carotid bruit. No lymphadenopathy. LUNGS: Decreased entry. Clear to auscultation. No rales or rhonchi. HEART: S1, S2 normal. No S3. No murmur, gallop or regurgitation. ABDOMEN: Soft, nontender. Bowel sounds active. No rigidity. No rebound or guarding. No CVA tenderness. EXTREMITIES: No clubbing, cyanosis or pedal edema. Right lower extremity no cyanosis, clubbing or pedal edema. Redness and swelling in the right lower extremity is much improved. MUSCULOSKELETAL: No joint swelling. NEUROLOGIC: The patient is awake, alert, oriented times three. No focal deficit. LYMPHATIC: No lymph nodes palpable. SKIN: Intact. LABS: Sodium 136, potassium 4.3, chloride 100, bicarb 28, BUN 15, creatinine 1.18. White count 8.87, hemoglobin 13.1, hematocrit 38.7, platelet count 336. ASSESSMENT: 1. RIGHT LOWER EXTREMITY CELLULITIS 2. PALPITATION WITH HOLTER MONITORING SHOWING MULTIPLE PAUSES 3. MORBID OBESITY 4. DIABETES MELLITUS 5. CHRONIC KIDNEY DISEASE 6. ANEMIA 7. POLYSUBSTANCE USE PLAN: 1. Will do echocardiogram 2. Will give Vancomycin and Rocephin 3. Keep legs elevated when resting TIME SPENT: More than 35 minutes MTDD
--- NOTE | 2017-07-19 17:19 | DS ---
DATE OF SERVICE: 06/12/17 FINAL DIAGNOSIS: 1. PALPITATIONS WITH HOLTER MONITORING SHOWING PAUSES 2.5 SECONDS TO 4 SECONDS 2. RIGHT LOWER EXTREMITY CELLULITIS, NO DVT 3. MORBID OBESITY 4. POLYSUBSTANCE USE 5. HYPERTENSION 6. DIABETES 7. DEPRESSION 8. GERD 9. DYSLIPIDEMIA DISCHARGE INSTRUCTIONS: Discharge the patient home. Cardiology evaluation as an outpatient. Followup in the [facility] within 4 days. MEDICATIONS AT DISCHARGE: Lipitor Clonidine Prozac Hydrochlorothiazide Lisinopril Metformin Protonix NEW PRESCRIPTIONS: Clindamycin 300 mg three times a day for four days DIET INSTRUCTIONS: Diabetic and cardiac diet ACTIVITY: As much as tolerated SMOKING: Smoker DISEASE SPECIFIC EDUCATION: Palpitations, pauses, right lower extremity cellulitis and risk of osteomyelitis discussed. HOSPITAL COURSE: This is a 37-year-old male with multiple medical problems, noncompliant with medications and recommendations. He came to the office for followup. When he walked in his heart rate was almost 200 on the tracker. It was regular and at that time he was advised to go to the emergency room for further evaluation. He was evaluated in the emergency room but the patient signed out AMA from the emergency room. The next day the patient came back and wanted to be admitted for evaluation of palpitations and right lower extremity swelling and redness. At that time, he was admitted to the hospital. Ultrasound of the right lower extremity done which did not show any clots. The right leg had circumferential redness, tenderness and swelling was present. For that antibiotic Vancomycin and Rocephin was started. The patient was put on holter monitoring and echocardiogram was ordered. Holter was read by Dr. Crawley. The patient was having some pauses and needed evaluation and possibly pacemaker as an outpatient. The patient's symptoms were symptomatic and was not passing out and was not dizzy or light-headed at this time. For the same reason, I did talk with Dr. Roman per phone for consultation. He did suggest the same and he wanted the patient to be off marijuana as patient is a bigtime user of marijuana and even used marijuana in the hospital. He wanted marijuana to be stopped until he sees patient as an outpatient. Meanwhile the patient is up and about walking and not having any problems. Right leg swelling and redness almost resolved. TIME SPENT: MORE THAN 55 MINUTES MTDD
== END 2017-06-12 12:07 | disposition home or self-care (01) | DRG 309 ==
LOC: MEDSURG A 10:03
PROVIDERS: ADMIT Emergency Medicine; ATTEND Emergency Medicine
DX: R00.2 Palpitations (principal); L03.115 Cellulitis of right lower limb; E66.01 Morbid (severe) obesity due to excess calories; I10 Essential (primary) hypertension; I12.9 Hypertensive chronic kidney disease with stage 1 through stage 4 chronic kidney disease, or unspecified chronic kidney disease; E11.22 Type 2 diabetes mellitus with diabetic chronic kidney disease; N18.9 Chronic kidney disease, unspecified; F12.90 Cannabis use, unspecified, uncomplicated; F32.9 Major depressive disorder, single episode, unspecified; E78.5 Hyperlipidemia, unspecified; K21.9 Gastro-esophageal reflux disease without esophagitis; D64.9 Anemia, unspecified; Z91.14 Patient's other noncompliance with medication regimen; Z79.84 Long term (current) use of oral hypoglycemic drugs; Z79.899 Other long term (current) drug therapy
CPT/HCPCS: 36415; 80053; 80202; 82550; 82553; 82962; 84443; 84484; 85025; 93227; 99223; 99233; 99239

== ENCOUNTER 2017-06-24 13:00 | Outpatient (CLI) ==
[2017-06-08 16:54] VITALS: BMI 60.7
== END 2017-06-24 13:01 | disposition home or self-care (01) ==
LOC: CAR 13:00
PROVIDERS: ATTEND Internal Medicine Pulmonary Disease
DX: G47.33 Obstructive sleep apnea (adult) (pediatric) (principal)
CPT/HCPCS: 95811

== ENCOUNTER 2017-08-05 16:26 | Outpatient (CLI) ==
[2017-06-08 16:54] VITALS: BMI 60.7
--- NOTE | 2017-08-06 07:45 | DI ---
EXAM: CHEST FRONTAL AND LATERAL VIEWS HISTORY: Acute upper respiratory infection. COMPARISON: 01/22/2017 FINDINGS: Heart size and mediastinal contour within normal limits. No acute infiltrates. Normal vascularity with no pleural fluid or pneumothorax. The bony thorax has no acute finding. IMPRESSION: No acute process.
== END 2017-08-05 16:27 | disposition home or self-care (01) ==
LOC: RAD 16:26
PROVIDERS: ATTEND Emergency Medicine
DX: J06.9 Acute upper respiratory infection, unspecified (principal)

== ENCOUNTER 2017-09-04 12:14 | Outpatient (CLI) ==
[2017-06-08 16:54] VITALS: BMI 60.7
== END 2017-09-04 12:15 | disposition home or self-care (01) ==
LOC: LAB 12:14
PROVIDERS: ATTEND Emergency Medicine
DX: E11.9 Type 2 diabetes mellitus without complications (principal); Z79.4 Long term (current) use of insulin
CPT/HCPCS: 36415; 83037

== ENCOUNTER 2017-10-12 17:14 | Outpatient (CLI) ==
[2017-06-08 16:54] VITALS: BMI 60.7
== END 2017-10-12 17:15 | disposition home or self-care (01) ==
LOC: LAB 17:14
PROVIDERS: ATTEND Emergency Medicine
DX: E11.9 Type 2 diabetes mellitus without complications (principal); E66.9 Obesity, unspecified; I10 Essential (primary) hypertension; R53.1 Weakness; Z79.4 Long term (current) use of insulin
CPT/HCPCS: 36415; 80053; 80061; 83036; 84403; 84443; 85025

== ENCOUNTER 2018-08-16 13:12 | Outpatient (CLI) ==
[2018-07-25 20:25] VITALS: BMI 58.6
== END 2018-08-16 13:13 | disposition home or self-care (01) ==
LOC: LAB 13:12 → FCC-LAB 13:13
PROVIDERS: ATTEND Family Medicine
DX: R53.81 Other malaise (principal); E11.65 Type 2 diabetes mellitus with hyperglycemia; K21.9 Gastro-esophageal reflux disease without esophagitis; R61 Generalized hyperhidrosis; Z79.4 Long term (current) use of insulin; Z68.43 Body mass index [BMI] 50.0-59.9, adult; R25.2 Cramp and spasm
CPT/HCPCS: 36415; 80053; 84484; 85025

== ENCOUNTER 2018-11-15 18:35 | Emergency (ER) ==
[2018-11-15 18:44] VITALS: BP 143/87; TEMP 98.2; BMI 46.1
[2018-11-15] MEDS ORDERED: BOOSTRIX IM ONE (19:15)
[2018-11-15] MEDS ORDERED: UNASYN 3 GM in SODIUM CHLORIDE 100 ML IV STA (19:15)
--- NOTE | 2018-11-15 19:19 | ED.PDOC ---
General ED Provider: Dr. BRET SHEPPARD Chief Complaint: Extremity Swelling/Pain Stated Complaint: two days ago sustained an injury with a nail on the right middle finger. has been swollen and painful since Time Seen by Physician: 19:17 Mode of Arrival: Walk-In Information Source: Patient Exam Limitations: No limitations Primary Care Provider: AUBREY RAMAN Nursing and Triage Documentation Reviewed and Agree: Yes Does patient meet sepsis criteria?: No System Inflammatory Response Syndrome: Pulse >90 BPM Sepsis Protocol: For patient's 13 years and over: Temp is 96.8 and below OR 101 and greater Pulse >90 BPM Resp >20/minute Acutely Altered Mental Status Are patient's symptoms suggestive of a new infection, such as: -Pneumonia -Skin, Soft Tissue -Endocarditis -UTI -Bone, Joint Infection -Implantable Device -Acute Abdominal Infection -Wound Infection -Meningitis -Blood Stream Catheter Infection -Unknown Skin Complaint Exam - Skin/Soft Tissue Complaint/Exam Onset/Duration: 2 days Symptoms Are: Still present Timing: Constant Initial Severity: Moderate Current Severity: Moderate Location: Right distal middle finger Character: Reports: Redness, Swelling, Raised, Painful Aggravating: Reports: None Alleviating: Reports: None Associated Signs and Symptoms: Reports: Tenderness Related History: Reports: Recent trauma. Denies: Similar episode Related Surgical History: Reports: None Recent Exposure to Others w/Similar Symptoms: No Skin Findings: Present: Erythema, Induration, Fluctuant mass Joint Tenderness Present: Yes Differential Diagnoses: Abscess, Cellulitis, Foreign Body, Infection, MRSA Review of Systems - Review Of Systems Constitutional: Reports: No symptoms Ears, Nose, Mouth, Throat: Reports: No symptoms Respiratory: Reports: No symptoms Cardiac: Reports: No symptoms GI: Reports: No symptoms Musculoskeletal: Reports: Joint pain, Joint swelling Neurological: Reports: Anxiety All Other Systems: Reviewed and Negative Past Medical History - Past Medical History Previously Healthy: Yes Endocrine: Reports: DM 2, Dyslipidemia Cardiovascular: Reports: Hypertension Respiratory: Reports: Pneumonia Hematological: Reports: None Gastrointestinal: Reports: GERD Genitourinary: Reports: Other (Acute renal failure ) Neuro/Psych: Reports: Depression Musculoskeletal: Reports: None Cancer: Reports: None Other Pertinent Past Medical History: Obesity, SLEEP APNEA, PNEUMONIA WITH KIDNEYS SHUTTING DOWN IN 2017 - Surgical History General Surgical History: Reports: Other (RIGHT HEEL SURGRY. RIGHT SHOULDER DISLOCATION. ) - Family History Family History: Reports: Hypertension, Other (call stones, obesity ) - Social History Smoking Status: Current every day smoker Hx Substance Use: No Alcohol Screening: None - Immunizations Tetanus Shot up to Date: No Physical Exam - Physical Exam Appearance: Obese Ill-appearing: Mild Pain Distress: Moderate Neck: Supple Respiratory: Airway patent Cardiovascular: RRR, Pulses normal, No rub, No murmur GI/: Soft, Nontender, No masses, Bowel sounds normal, No Organomegaly Musculoskeletal: Limited ROM (right middle finger ) Skin: Warm, Dry Neurological: Alert, Oriented Psychiatric: Anxious Physician Notification - Case Discussed Physician Notified: DR. VALE Time of Notification: 21:05 (NEEDS TO BE SENT TO A HIGHER LEVEL OF CARE WHERE HE CAN BE SEEN BY SURGERY, PLASTICS.) Critical Care Note - Critical Care Note Total Time (mins): 40 Course - Course Hematology/Chemistry: 11/15/18 19:30 11/15/18 19:30 Orders, Labs, Meds: Lab Review 11/15/18 11/15/18 11/15/18 19:30 19:30 19:30 WBC 10.00 RBC 5.07 Hgb 14.0 Hct 42.0 MCV 82.8 MCH 27.6 MCHC 33.3 RDW Coeff of Joselin 13.3 Plt Count 314 Immature Gran % (Auto) 0.2 Neut % (Auto) 73.1 Lymph % (Auto) 17.4 Cameron % (Auto) 6.8 Eos % (Auto) 2.0 Baso % (Auto) 0.5 Immature Gran # (Auto) 0.0 Neut # (Auto) 7.3 H Lymph # (Auto) 1.7 [place] # (Auto) 0.7 Eos # (Auto) 0.2 Baso # (Auto) 0.1 ESR 9 Sodium 132.0 L Potassium 4.81 Chloride 95.8 L Carbon Dioxide 26.6 Anion Gap 14.41 BUN 20.2 H Creatinine 1.16 H Estimated GFR (MDRD) 70.00 BUN/Creatinine Ratio 17.41 Glucose 440.2 H Hemoglobin A1c 11.81 H Lactic Acid Calcium 9.15 Total Bilirubin 0.61 AST 26.8 ALT 43.1 Alkaline Phosphatase 98.7 Total Protein 7.01 Albumin 4.22 Globulin 2.79 Albumin/Globulin Ratio 1.51 Procalcitonin 11/15/18 11/15/18 19:30 19:30 WBC RBC Hgb Hct MCV MCH MCHC RDW Coeff of Joselin Plt Count Immature Gran % (Auto) Neut % (Auto) Lymph % (Auto) [place] % (Auto) Eos % (Auto) Baso % (Auto) Immature Gran # (Auto) Neut # (Auto) Lymph # (Auto) [place] # (Auto) Eos # (Auto) Baso # (Auto) ESR Sodium Potassium Chloride Carbon Dioxide Anion Gap BUN Creatinine Estimated GFR (MDRD) BUN/Creatinine Ratio Glucose Hemoglobin A1c Lactic Acid 1.30 Calcium Total Bilirubin AST ALT Alkaline Phosphatase Total Protein Albumin Globulin Albumin/Globulin Ratio Procalcitonin < 0.05 Orders Category Date Time Status ED IV/MEDIPORT/POWERPORT .ONCE EMERGENCY 11/15/18 19:15 Active BLOOD CULTURE (ED ONLY) Stat LAB 11/15/18 19:30 Received CBC W/ AUTO DIFF Stat LAB 11/15/18 19:30 Completed COMPREHENSIVE METABOLIC PANEL Stat LAB 11/15/18 19:30 Completed ESR Stat LAB 11/15/18 19:30 Completed HEMOGLOBIN A1C Stat LAB 11/15/18 19:30 Completed LACTIC ACID Stat LAB 11/15/18 19:30 Completed PROCALCITONIN Stat LAB 11/15/18 19:30 Completed 0.9 % Sodium Chloride [Saline Flush] MEDS 11/15/18 19:15 Discontinued 1 syr IVF PRN PRN Ampicillin Sodium/Sulbactam Na [Unasyn] MEDS 11/15/18 19:27 Discontinued 3 gm .ROUTE .STK-MED ONE Ampicillin Sodium/Sulbactam Na [Unasyn] 3 gm MEDS 11/15/18 19:15 Discontinued 0.9 % Sodium Chloride [Sodium Chloride] 100 ml IV ONCE Diphth,Pertuss(Acell),Tet Vac [Boostrix] MEDS 11/15/18 19:15 Discontinued 0.5 ml IM .ONCE ONE FINGER(S) RIGHT MIN 2V Stat RADS 11/15/18 19:15 Completed Medications Discontinued Medications Generic Name Dose Route Start Last Admin Trade Name Freq PRN Reason Stop Dose Admin Diphtheria/Pertussis/Tetanus Vacc 0.5 ml 11/15/18 19:15 11/15/18 19:34 Boostrix IM 11/15/18 19:16 0.5 ml .ONCE ONE Administration Ampicillin Sodium/Sulbactam 100 mls @ 100 mls/hr 11/15/18 19:15 11/15/18 19: 36 Sodium 3 gm/ Sodium Chloride IV 11/15/18 20:14 100 mls/hr ONCE STA Administration Sodium Chloride 1 syr 11/15/18 19:15 Saline Flush IVF PRN PRN To flush IV Vital Signs: Temp Pulse Resp BP Pulse Ox 11/15/18 18:38 98.2 F 121 H 18 143/87 H 96 Departure - Departure Time of Disposition: 22:20 Disposition: AMA Discharge Problem: Abscess of finger of right hand Instructions: Abscess (ED) Condition: Serious Pt referred to PMD for follow-up: Yes IPMP verified?: No Additional Instructions: YOU AREA LEAVING AGAINST MEDICAL ADVICE OF STAYING AND BEING TRANSFERRED TO A HIGHER LEVEL OF CARE FOR CONSULTATION WITH SURGERY PLASTICS INFECTIOUS DISEASE DOCTOR. YOU AREA AT RISK OF LOOSING YOU FINGER OR HAND AND FROM SEPTIC INFECTION. PLEASE GO TO THE NEAREST HOSPITAL SOON YOU CHANGE YOUR MIND. Allergies/Adverse Reactions: Allergies No Known Allergies Allergy (Verified 11/15/18 19:00) Home Medications: Ambulatory Orders Insulin Lispro [Admelog Solostar] 7 unit SQ TIDWM #5 insuln.pen 07/27/18 Lancets [Bd Ultra-Fine II] 1 each ACHS #120 each 07/27/18 Disposition Discussed With: Patient
[2018-11-15] MEDS ORDERED: UNASYN ONE (19:27)
--- NOTE | 2018-11-15 20:30 | DI ---
EXAM: Right finger three view. HISTORY: Patient history of right middle finger injury. Comparison: None available. Findings: No definitive right third finger acute fracture or dislocation is identified. There is right third f foster soft tissue gas and swelling seen. The right third finger joint spaces appear preserved. Impression: No definitive right third finger acute fracture or dislocation is identified. Right third finger soft tissue swelling and gas.
--- NOTE | 2018-11-16 07:05 | PCM.PROG ---
I received a call from Dr. Leon in ER at 20:44 discussing patient case with me. He informed me that patient had a puncture wound to right digit 3, blood glucose out of control. X-ray showed no fracture but did show gas within the finger. Swelling, erythema prominently. Markedly swollen, red and painful. Discussed tetanus status, patient unknown, was given tetanus in ER. I also asked if patient had been given/offered tetanus immune globulin (unknown # tetanus doses and likely >5 years ago supports consideration of human tetanus immune globulin). Patient concerned about transfer to [facility] as he would have to see plastics, which would not likely take his insurance. It was then recommended to consider [place] or [facility]. I did not feel that this wsa an appropriate admission at [facility] due to possibility of needing surgical evaluation. Within literature elevation, IV abx can be considered, but that was in a place that had surgical eval should that worsen. Without the specialists here, this would not be a reasonable admission. Patient was given zosyn. I expressed concern for threat to digit/hand for worsening soft tissue/ deep infection especially in light of his poorly controlled DM. I did not receive any additional information about patient, it appears that he left A.
== END 2018-11-15 21:05 | disposition left against medical advice (07) ==
LOC: ED 18:35
DX: M79.644 Pain in right finger(s) (principal); M25.441 Effusion, right hand; S69.91XA Unspecified injury of right wrist, hand and finger(s), initial encounter; F41.9 Anxiety disorder, unspecified; Z72.0 Tobacco use; L02.511 Cutaneous abscess of right hand
CPT/HCPCS: 36415; 80053; 83036; 83605; 84145; 85025; 85651; 87040; 90471; 90715; 96365; 99284

== ENCOUNTER 2019-01-04 20:33 | Emergency (ER) | payer OTHER ==
[2019-01-04 20:43] VITALS: BP 149/90; TEMP 98.6; BMI 52.5
--- NOTE | 2019-01-04 21:23 | ED.PDOC ---
General ED Provider: Dr. VANNA SAM MD Chief Complaint: Diabetes Stated Complaint: i think my suger is high Time Seen by Physician: 21:21 Mode of Arrival: Walk-In Information Source: Patient Exam Limitations: No limitations Primary Care Provider: DEBRA DOUGLAS Nursing and Triage Documentation Reviewed and Agree: Yes Does patient meet sepsis criteria?: No If yes, has appropriate treatment been initiated?: Yes System Inflammatory Response Syndrome: Not Applicable Sepsis Protocol: For patient's 13 years and over: Temp is 96.8 and below OR 101 and greater Pulse >90 BPM Resp >20/minute Acutely Altered Mental Status Are patient's symptoms suggestive of a new infection, such as: -Pneumonia -Skin, Soft Tissue -Endocarditis -UTI -Bone, Joint Infection -Implantable Device -Acute Abdominal Infection -Wound Infection -Meningitis -Blood Stream Catheter Infection -Unknown Review of Systems - Review Of Systems Constitutional: Reports: Other (headache) Eyes: Reports: No symptoms Ears, Nose, Mouth, Throat: Reports: No symptoms Respiratory: Reports: No symptoms Cardiac: Reports: No symptoms GI: Reports: No symptoms : Reports: No symptoms Musculoskeletal: Reports: No symptoms Skin: Reports: No symptoms Neurological: Reports: No symptoms Endocrine: Reports: No symptoms Hematologic/Lymphatic: Reports: No symptoms All Other Systems: Reviewed and Negative Past Medical History - Past Medical History Previously Healthy: Yes Endocrine: Reports: DM 2, Dyslipidemia Cardiovascular: Reports: Hypertension Respiratory: Reports: Pneumonia Hematological: Reports: None Gastrointestinal: Reports: GERD Genitourinary: Reports: Other (Acute renal failure ) Neuro/Psych: Reports: Depression Musculoskeletal: Reports: None Cancer: Reports: None Other Pertinent Past Medical History: Obesity, SLEEP APNEA, PNEUMONIA WITH KIDNEYS SHUTTING DOWN IN 2017 - Surgical History General Surgical History: Reports: Other (RIGHT HEEL SURGRY. RIGHT SHOULDER DISLOCATION. ) - Family History Family History: Reports: Hypertension, Other (call stones, obesity ) - Social History Smoking Status: Current every day smoker Hx Substance Use: No Alcohol Screening: None - Immunizations Tetanus Shot up to Date: Yes Physical Exam - Physical Exam Appearance: Obese Ill-appearing: None Pain Distress: None Eyes: JANETH, EOMI, Conjunctiva clear ENT: Ears normal, Nose normal, Oropharynx normal Respiratory: Airway patent, Breath sounds clear, Breath sounds equal, Respirations nonlabored Cardiovascular: RRR, Pulses normal, No rub, No murmur GI/: Soft, Nontender, No masses, Bowel sounds normal, No Organomegaly Musculoskeletal: Normal strength, ROM intact, No edema, No calf tenderness Skin: Warm, Dry, Normal color Neurological: Sensation intact, Motor intact, Reflexes intact, Cranial nerves intact, Alert, Oriented Psychiatric: Affect appropriate, Mood appropriate Critical Care Note - Critical Care Note Total Time (mins): 0 Course - Course Hematology/Chemistry: 01/04/19 21:36 01/04/19 21:36 Orders, Labs, Meds: Lab Review 01/04/19 01/04/19 01/04/19 21:36 21:36 21:36 WBC 11.22 H RBC 5.55 Hgb 15.7 Hct 46.1 MCV 83.1 MCH 28.3 MCHC 34.1 RDW Coeff of Joselin 13.2 Plt Count 338 Immature Gran % (Auto) 0.4 Neut % (Auto) 73.5 Lymph % (Auto) 15.9 [place] % (Auto) 7.4 Eos % (Auto) 2.3 Baso % (Auto) 0.5 Immature Gran # (Auto) 0.0 Neut # (Auto) 8.3 H Lymph # (Auto) 1.8 [place] # (Auto) 0.8 Eos # (Auto) 0.3 Baso # (Auto) 0.1 Sodium 126.8 L Potassium 4.64 Chloride 90.0 L Carbon Dioxide 26.4 Anion Gap 15.04 BUN 24.2 H Creatinine 1.00 Estimated GFR (MDRD) 83.00 BUN/Creatinine Ratio 24.20 Glucose 620.4 H* Calcium 9.15 Urine Color Light Urine Clarity Clear Urine pH 5.5 Ur Specific [place] <=1.005 Urine Protein Negative Urine Glucose (UA) 2+ Urine Ketones Negative Urine Blood Negative Urine Nitrite Negative Urine Bilirubin Negative Urine Urobilinogen 0.2 Ur Leukocyte Esterase Negative Orders Category Date Time Status ACCUCHECK (ED) [ED ACCUCHECK ASSESSMENT] .ONCE EMERGENCY 01/04/19 21:21 Active IV [ED IV/MEDIPORT/POWERPORT] .ONCE EMERGENCY 01/04/19 21:26 Active BMP [BASIC METABOLIC PANEL] Stat LAB 01/04/19 21:36 Completed CBC W/ AUTO DIFF Stat LAB 01/04/19 21:36 Completed UA [URINALYSIS C & S IF INDICATED] Stat LAB 01/04/19 21:36 Completed 0.9 % Sodium Chloride [Saline Flush] MEDS 01/04/19 21:26 Ordered 1 syr IVF PRN PRN Insulin Regular, Human [Humulin R] MEDS 01/04/19 22:14 Discontinued 8 unit IVP ONCE STA Ringers Lactated Solution [Lactated Ringers] 1,000 ml MEDS 01/04/19 21:27 Discontinued IV BOLUS Ringers Lactated Solution [Lactated Ringers] 1,000 ml MEDS 01/04/19 22:50 Active IV BOLUS Medications Generic Name Dose Route Start Last Admin Trade Name Freq PRN Reason Stop Dose Admin Lactated Ringer's 1,000 mls @ 500 mls/hr 01/04/19 22:50 01/04/19 22:54 Lactated Ringers IV 01/05/19 00:49 500 mls/hr BOLUS STA Administration Sodium Chloride 1 syr 01/04/19 21:26 01/04/19 21:37 Saline Flush IVF 1 syr PRN PRN Administration To flush IV Discontinued Medications Generic Name Dose Route Start Last Admin Trade Name Freq PRN Reason Stop Dose Admin Lactated Ringer's 1,000 mls @ 1,000 mls/hr 01/04/19 21:27 01/04/19 21:37 Lactated Ringers IV 01/04/19 22:26 1,000 mls/hr BOLUS STA Administration Insulin Human Regular 8 unit 01/04/19 22:14 01/04/19 22:21 Humulin R IVP 01/04/19 22:15 8 unit ONCE STA Administration Vital Signs: Temp Pulse Resp BP Pulse Ox 01/04/19 20:36 98.6 F 105 H 20 149/90 H 94 L Departure - Departure Time of Disposition: 00:33 Disposition: HOME SELF-CARE Discharge Problem: Hyperglycemia, unspecified Condition: Good Pt referred to PMD for follow-up: Yes IPMP verified?: No Allergies/Adverse Reactions: Allergies No Known Allergies Allergy (Verified 11/15/18 19:00) Home Medications: Ambulatory Orders Insulin Lispro [Admelog Solostar] 7 unit SQ TIDWM #5 insuln.pen 07/27/18 Lancets [Bd Ultra-Fine II] 1 each ACHS #120 each 07/27/18 Transfer Form Completed: No Disposition Discussed With: Patient, Family
[2019-01-04] MEDS ORDERED: LACTATED RINGERS 1,000 ML IV STA ×2 (21:27→22:50)
[2019-01-04] MEDS ORDERED: HUMULIN R IVP STA (22:14)
== END 2019-01-05 00:32 | disposition home or self-care (01) ==
LOC: ED 20:33
DX: E11.65 Type 2 diabetes mellitus with hyperglycemia (principal); R51 Headache; Z79.4 Long term (current) use of insulin; I10 Essential (primary) hypertension; E78.5 Hyperlipidemia, unspecified; F17.210 Nicotine dependence, cigarettes, uncomplicated
CPT/HCPCS: 36415; 80048; 81001; 82962; 85025; 96361; 96374; 99283

== ENCOUNTER 2019-01-06 11:02 | Observation (INO) ==
[2019-01-06 11:41] VITALS: BMI 24.1
[2019-01-06] MEDS ORDERED: HUMALOG SUBCUT STA (12:10)
[2019-01-06] MEDS ORDERED: NON-FORMULARY MEDICATION (Fluoxetine Hcl [Prozac] 40 MG) PO SCH (12:15)
[2019-01-06] MEDS ORDERED: INSULIN GLARGINE HUM REC ANLOG 75 UNIT SQ SCH (12:15)
[2019-01-06] MEDS ORDERED: DIABETIC MC SCH (12:15)
[2019-01-06] MEDS ORDERED: [UNRECOGNIZED DRUG - OTHER] SQ SCH (12:15)
[2019-01-06] MEDS ORDERED: RANITIDINE HCL 75 MG PO SCH (12:15)
[2019-01-06] MEDS ORDERED: NON-FORMULARY MEDICATION (Hydrochlorothiazide [Hydrochlorothiazide] 12.5 MG) PO SCH (12:15)
--- NOTE | 2019-01-06 12:22 | PCM ---
- Chief Complaint Chief Complaint: Hyperglycemia, Morbid Obesity, HTN, Malaise and Fatigue. - History of Present Illness History of Present Illness: Patient is a 38 year old White/ male who presented to my office today for his weekly OV for his DM. We discussed his last week and reviewed his need to go to ER on 01/04/19 and his meeting with Dr. Garza. The patient noted that his sugar was high. He was checked and glucose was 620.4, Sodium 126.8, K + 4.64, cl 90, bun 24.2, cl 1.00. CBC with WBC 11.22, plt 338. He was evaluated as he had PINEDO,, known DM2, dyslipdiemia, HTN, pneuomnia. BP in ER was 149/90. BG 342 at discharge. He was given 8 units of regular insulin. Sugar in office now is >500. He has been eating Potato gravy, coleslaw, baked beans, rolls, corn. He has used his insulin 70 last night and 7 units at lunch yesterday. He did not bring sugar log. he wants to go into hospital for sugar checking. I think that this is reasonable. He is aware of his issues with eating. Weight is up 1 lb from last OV. BP is borderline. He wants to go into hospital this time. I will contact bed board. He does not feel well. We reviewed his ER documentation. ROS no constitutional, issues, PINEDO, , negative ROS in ER. Known DM 2, dyslipidemia, HTN, pneumonia, GERD, Depression. History of Obesity, sleep apnea, pneumonia with renal failure 2016. ER note showed normal exam. Mild hyponatremia corrected to normal. sodium 132 corrected. Essential HTN. Pulse was 105. Today: He has chronic Finger pain digit 3 of right. He is following with wound care. His insurance will not cover ortho any longer. We will get him admitted to hospital today for glucose control. Tachycardia, chronically, hypertension chronically. He is non compliant. BMI 53.5. Reviewed ER notes with him today. Patient has not been controlling diet, has been seen weekly in office with increases in his insulin level basaglar 5 units per week, weekly over last 3 weeks. He is not improving , he is eating more, morbidly obese, which is causing issues at this time. No chest pain today, vision is up/down. He has not seen his eye provider. He is reporting taking his BP meds. Again, admit to hospital for hyperglycemia. Also reports today foreign body finger, removed in office today. Verbal informed consent today. Cleansed with ETOH x 3, using 18 G 1 inch needle, wooden splinter removed from tip of digit 2. tolerated well, no issues, no other issues/complaints today. We had a fire alarm while he was here and he had to walk outside, which is hard on him. ambulation is difficult. He was markedly hyperhydrototic to borderline Diaphoretic. He had no CP, blurred vision no other changes. No SOA, no other symptoms except marked glucose elevation from dietary indiscretion. We reviewed his insulin use. he notes he has been using the insulin as we have discussed. Currently on basaglar 70 units daily. Did not use his meal time insulin but once yesterday. Discussed his need to f/u with us weekly. Tobacco use unchanged. - Review of Systems Constitutional: weakness, sweats, fatigue. No: fever, chills, loss of appetite , other Eyes: blurred vision. No: double-vision, discharge, itching, pain, redness, photophobia, other Ears: No: pain, bleeding, drainage, ringing, hearing loss, other Nose: No: bleeding, congestion, discharge, other Throat: No: pain, swelling, voice change, other Mouth: No: bleeding, pain, swelling, other Respiratory: No: cough, shortness of air, wheeze, hemoptysis, pain with breathing, other Cardiovascular: No: chest pain, left arm pain, diaphoresis, PND, orthopnea, edema, palpitations, syncope, other Gastrointestinal: nausea. No: abdominal pain, vomiting, diarrhea, melena, hematemesis, hematochezia, dysphagia, constipation, other Genitourinary: frequency. No: dysuria, hematuria, incontinence, flank pain, penile discharge, testicular pain, testicular swelling, other Neurological: dizziness. No: headache, seizure, numbness, weakness, speech difficulty, problems with walking, tremor, fainting, other Musculoskeletal: No: pain, swelling in joints, other Skin: other (skin tags. Resolving wound right digit 3 (wound that is healing). Finger 2 on left hand splinter removed by me in office today. TOlerated well, no issues. ). No: rash, pruritus, lacerations, wounds, bruising Immunology: No: hives, itching, frequent infections, difficulty healing, other Hematology: No: easy bruising, easy bleeding, swollen glands, other Endocrine: weight changes (weight gain). No: cold intolerance, heat intolerance , excessive thirst, excessive hunger, polyuria, other Psychiatric: depression, anxiety. No: sleeplessness, hopelessness, suicidal, hallucinations, other Habits: tobacco use. No: substance use, alcohol use, other - Past Medical History Past Medical History: DM, morbid obesity, abscess right face, hyperlipidemia, HTN. Skin tags, GERD, Microalbunuria, Chronic arthritis, fatigue and malaise. - Past Surgical History Past Surgical History: Surgery right ankle. Adenoidectomy, I+D digit 3 on right 11/16/18. Tonsillectomy. - Allergies Allergies/Adverse Reactions: Allergies Allergy/AdvReac Type Severity Reaction Status Date / Time No Known Allergies Allergy Verified 11/15/18 19:00 - Medications Medications: Medications Generic Name Dose Route Start Last Admin Trade Name Freq PRN Reason Stop Dose Admin Enoxaparin Sodium 40 mg 01/06/19 12:30 Lovenox SUBCUT DAILY [facility] Sodium Chloride 1,000 mls @ 125 mls/hr 01/06/19 12:30 Sodium Chloride IV .Q8H [facility] Insulin Human Lispro 0 - 15 unit 01/06/19 12:10 Humalog SUBCUT 01/06/19 12:11 ONCE STA Protocol Non-Formulary Medication 2 puff 01/06/19 12:30 Albuterol Sulfate [Ventolin Hfa] IH q4 hours prn JACINDA Non-Formulary Medication 20 mg 01/07/19 09:00 Atorvastatin Calcium [Lipitor] PO DAILY JACINDA Non-Formulary Medication 0.2 mg 01/06/19 21:00 Clonidine Hcl [Clonidine Hcl] PO BID JACINDA Non-Formulary Medication 40 mg 01/06/19 12:15 Fluoxetine Hcl [Prozac] PO DAILY JACINDA Non-Formulary Medication 12.5 mg 01/06/19 12:15 Hydrochlorothiazide [Hydrochlorothiazide] PO DAILY JACINDA Non-Formulary Medication 75 unit 01/06/19 12:15 Insulin Glargine,Hum.Rec.Anlog [Basaglar Kwikpen U-100] SQ DAILY JACINDA Non-Formulary Medication 40 mg 01/06/19 12:30 Lisinopril [Lisinopril] PO DAILY JACINDA Non-Formulary Medication 1 each 01/06/19 12:15 Pen Needle, Diabetic [Pen Needle] MC 3-4XD JACINDA Non-Formulary Medication 75 mg 01/06/19 12:15 Ranitidine Hcl [Zantac] PO BID JACINDA - Family History Past Family History: Mother: HTN, Hyperlipid,. Father: CAD, HTN, Hyperlipid. Children x 2: ADHD. Maternal Grandparents: COPD. Paternal Grandparents: CKD. Colon cancer negative. prostate cancer negative. - Social History Past Social History: 1/2 ppd smoking. No ETOH. No drugs. Lives with 2 children ages 13 yr and 6 yr. - Body Composition Height: 5 ft 9 in Weight: 360 lb 7.292 oz Body Mass Index (BMI): 24.1 - Physical Examination HEENT: Vital Signs Temp Pulse Resp BP Pulse Ox 01/06/19 14:00 98.2 F 92 H 18 146/81 H 95 01/06/19 11:16 98.4 F 99 H 16 93 L Constitutional: Appearance-No acute distress, Consistent with stated age. Orientation- Oriented x 3, alert Build and Nutrition-MORBIDLY OBESE MALE General- Finger is healing right digit 3. Hyperpigmented. The patient has had this wrapped/bandaged. Wound is c/d/i. He has some sloughing of skin. Poor hygiene in general. Integumentary: General- He has hemosiderin staining bilateral LE. Numerous skin tags bilateral neck, axilla. HE has chronic venous stasis, varicose veins No other open lesions, no decubitus ulcers. Finger is healing. He had splinter digit 2 of left hand distal phalanx. I removed this in office today prior to hospital stay. Toleated this well. Head/Neck: Head- normocephalic and atraumatic. Neck- without visible/palpable lumps or pulsations. Palpation- No bony tenderness about head/neck along frontal, occipital, temporal, parietal, mastoid, zygoma, orbit or any other location. Markedly tender along right jawline, packing sticking out. NO temporal artery tenderness. No TMJ tenderness. Neck Supple. Thyroid-No thyromegaly, no nodules Eye: Bilaterally PERRLA, EOMI. No discharge. Upper and lower eyelids are normal. Sclera/conjunctiva normal without discharge. Cornea is normal and clear. Lens is normal. Eyeball appears normal. No ciliary flushing, no conjunctival injection. ENMT: Pinna- normal without tenderness or erythema. External auditory canal Left- normal without erythema or discharge, no excessive cerumen. External auditory canal Right-normal without erythema or discharge, no excessive cerumen. TM left- Bacon/pearly, normal light reflex and anatomy TM Right- Bacon/ pearly, normal light reflex and anatomy Hearing Assessment-normal to conversational speech. Nose and sinus- No sinus tenderness along frontal/ maxillary region. External appearance normal and midline. Nares- bilateral quiet airflow, no discharge. Nasal mucosa- No bleeding noted and no ulcerations observed. [place], moist. Turbinates non boggy. Lips- normal color, moist without cracks/lesions Oral Cavity/Palate- hard/soft palate intact without lesions, oral mucosa pink and moist. Tongue normal midline. Oropharynx- no pharyngeal erythema, Uvula midline. No post nasal drip. No exudate. Salivary glands- Non tender to palpation CHEST/LUNG: Inspection- symmetric chest wall no pectus deformity. Normal effort , no distress, no use of accessory muscles. Palpation- nontender sternum, ribline. No abnormal pulsations. Auscultation- Breath sounds diminished throughout all lung streeter. Decreased effort. Lungs with scattered coarse sounds. Adventitious sounds- Rare scattered wheezes, No rales, Rare Scattered rhonchi. CARDIOVASCULAR: Carotid artery- normal, no bruits or abnormal pulsations. Jugular vein- no pulsations. Palpation/Percussion- Normal PMI, no palpable thrill Auscultation- Regular rate and rhythm. No murmur noted in sitting, Extremities - no digital clubbing, cyanosis, edema, increased warmth. ABDOMEN: Inspection- normal and no visible pulsations. Normal contour. Auscultation- Bowel sounds normal, no abdominal bruits. Palpation/Percussion- soft, non-tender, no rebound tenderness, no rigidity (guarding), no jar tenderness, no masses. Peripheral Vascular: Upper extremity Left- Normal temperature with pink nailbeds and no ulcerations. Upper extremity Right- Normal temperature with pink nailbeds and no ulcerations. Lower extremity- Normal temperature with pink nailbeds. He has hemosiderin staining. Bilteral UE and LE with scattered follicular process with hyperpigmented macules. Pedal hair reduced. Edema- edema bilateral legs 1+ to mid ruiz appears chronic. Musculoskeletal: Upper extremity- Symmetrical posture. No visible deformity. Normal sensation along medial and lateral upper extremity proximally and distally. NO tenderness overlying shoulder, lateral/medial epicondyle. Wharf Attendant 5/5 and strength 5/5 bilateral UE. Elbow palpated, no tenderness overlying olecranon. Normal supination, pronation to active/passive ROM and to resisted rotation. Bicep insertion/tricep insertion appear normal without obvious pathology. Normal wrist ROM bilaterally. Normal hand movement, intrinsic muscles of hands normal. No tenderness to palpation of hands/wrists/elbows. Lower extremity- Hip: Not tender to palpation, no pain, no swelling, edema or erythema of surrounding tissue, normal strength and tone. Normal appearing hip ROM bilaterally without pain. Knee: Knee ROM normal. No tenderness overlying trochanters, no tenderness about patella, quad tendon, patellar tendon. No tenderness at tibial tuberosity. Ankle: normal ROM not tender to palpation along medial/lateral malleolus. Foot: Normal movement of toes, no tenderness bilateral feet/toes. Normal foot type. Spine/Ribs- No deformities, masses or tenderness, no known fractures, normal strength, Decreased ROM. Tenderness LSP paraspinals. Neurological: General- Moves all 4 extremities symmetrically. Symmetrical face and body posture. Cranial nerves- individually evaluated II-XII and intact. PERRLA, Normal EOMI, visual/special senses appear intact, Face is symmetrical and normal sensation/movement, normal tongue, normal strength/posture of neck musculature. Reflexes- intact with DTR 2+ patellar, Achilles, bicep, brachial, tricep. Ankle clonus normal with 2 beats. Strength- 5/5 bilateral UE and LE. Soft touch- intact bilateral UE and LE. Temperature sensation- intact bilateral UE and LE. Neuropsych: Oriented- Person, place, time. (AAOx3), Low functioning understanding. Mood/affect- normal and congruent. Able to articulate well. Speech-Normal speech, normal rate, normal tone, normal use of language, volume and coherence. Thought content- basic computations and understanding. Low education, knowledge appears limited. and apply abstract thought/reason. Associations- intact, no SI/HI, no hallucinations, delusions, obsessions. Judgment/insight- Questionable Memory-Recall intact, remote and recent memory intact. Lymphatic: Head/Neck- normal size and non tender to palpation. Axillary- normal size and non tender to palpation. Femoral and Inguinal- normal size and non tender to palpation. - Lab/Tests/Diagnostic Imaging Lab/Tests/Diagnostic Imaging: Reviewed labs from 01/04/19 ER Visit with patient today. CBC 01/04/19 WBC 11.22, Hgb 15.7, plt 338. Neutrophils 8.3. CMP: 01/04/19 Sodium 126.8 (corrected to 132), K+ 4.64, cl 90, BUN 24.2, cr 1.0, GFR 83. Glucose 620.4. Was 395 12/16/18 in office. Calcium 9.15. Urine: 01/04/19 Clear, pH 5.5, neg prot, 2+ glucose, 0.2 urobilo. Microalbumin 07/29/18: 57.6 A1C 11/15/18. 11.81 - Assessment (1) Diabetes mellitus with hyperglycemia Status: Acute Code(s): E11.65 - TYPE 2 DIABETES MELLITUS WITH HYPERGLYCEMIA SNOMED Code(s): 47479881, 40212647, 633822486 (2) Smokes 1/2 pack a day or less Status: Acute Code(s): F17.210 - NICOTINE DEPENDENCE, CIGARETTES, UNCOMPLICATED SNOMED Code(s): 683861109 (3) BMI 50.0-59.9, adult Status: Inactive Code(s): Z68.43 - BODY MASS INDEX (BMI) 50-59.9, ADULT SNOMED Code(s): 299542583, 493611634 (4) Essential (primary) hypertension Status: Inactive Code(s): I10 - ESSENTIAL (PRIMARY) HYPERTENSION SNOMED Code (s): 15621219 (5) Hyperlipidemia Status: Inactive Code(s): E78.5 - HYPERLIPIDEMIA, UNSPECIFIED SNOMED Code(s) : 80433809 (6) Foreign body finger Status: Acute Code(s): S60.459A - SUPERFICIAL FOREIGN BODY OF UNSPECIFIED FINGER, INIT ENCNTR SNOMED Code(s): 041557097 - Plan Plan: Diabetes 2 A1C goal of 6-7% with hyperglycemia, correction insulin: Marked hyperglycemia today. He has had marked dietary indiscretion. I will admit to hospital for glucose management. Uncontrolled DM his A1C was 11.8 11/15/18 (too soon to repeat) Insulin dependent: [x]. Nephropathy, Retinopathy, Neuropathy status discussed. He has microalbuminuria, on lisinopril. We discussed Macrovascular and microvascular complications. Reviewed DM provides risk equivalency to already having had a heart attack. Reviewed goals of Diabetes with A1C initially to be 7-8 but ideally <7%. For the remainder a discussion with patient about R/B/A and review of reasonable hypoglycemic symptoms is needed. Good BP control is encouraged with Goal BP based on JNC 8 guidelines 2014 of SBP <140 and DBP <90. Discussed role of Otis-I and ARB with DM. DM imparts risk equivalence for CAD based on ATP III and modern ASCVD risk scores. Current guidelines from ACC/AHA support moderate intensity statin with goal of 30-50% reduction in LDL unless 10 yr risk ASCVD >7.5 then high intensity should be used. Close monitoring of Lipid levels encouraged. Recommend once yearly eye evaluation by optometry or ophthalmology. Good foot health discussed and foot exam recommended with each visit. Recommended to monitor toe health, wear good shoes, cut nails straight across and tend calluses as listed. Take medications as encouraged. Monitor blood sugars as encouraged and bring log to future meetings. Weight needs to be monitored. Monitor portions and caloric intake. - Admit observation status. - Telemetry - Basaglar to 75 units daily - Accucheck q 2 hours - Sliding scale per protocol: Calculate 24 hour insulin needs and adjust at discharge. Keep weekly f/u as OP. - CBC in am - CMP in am - A1C 11.81 11/15/18. - Monitor 24 hour insulin and discharge with increased insulin after I see how many total units he needs in next 24 hours. - Windows Mobile Developer recommended. - Diabetic education: 1. Pneumovax frequency discussed and up to date. 2. On Otis-I or ARB, continue during hospital stay 3. Diabetic issues reviewed with the patient: referral to Diabetic Education department discussed, low cholesterol diet, weight control and daily exercise discussed, home glucose monitoring emphasized, all medications, side effects and compliance discussed carefully, foot care discussed and offered referral to Podiatry, annual eye examinations discussed, glycohemoglobin and other lab monitoring discussed and storage specialist diabetic complications discussed. 4 Weight loss and if BMI >35, role of Bariatric surgery d/w patient today. 5. Meds as listed Reviewed r/B/A and SE of listed agents. Essential HTN: History of HTN. Elevated BP today above goal. AAFP is still using the JNC 8 guidelines supporting <140/90 for most adults and <150/90 for healthy older adults. Discussed some readily available medications/supplements can increase BP: NSAIDS, caffeine, decongestants, nicotine. Additionally stress , illegal drugs/substances, Pain and anxiety/white coat syndrome can increase BP. Close monitoring encouraged. Recommended to keep log and bring back to office in next few weeks to see if this is isolated or a trend. Can have BP checked at pharmacy or return to clinic for check. Monitor closely for next 1-2 weeks. If you have a home cuff check daily when you awaken. Best if seated 10- 15 minutes back supported. If >140/90 rest back supported, arms/legs uncrossed and repeat reading 15 minutes later. If no cuff, check at pharmacy or in our office. Goal <140/90. If BP is unchanged worsening will need to f/u with me in office. After d/c, if chest pain, vision changes, unexplained PINEDO consider ER evaluation. Hyperlipidemia: ON statin, chronic. LFT stable. Needs to continue this agent. BMI 50-59: Federal guidelines recommend that people under the age of 65 should have a BMI of 18.5-24.9 and people age 65 and older should have a BMI of 23-30. Morbid obesity is defined as >100 lb overweight or BMI >40. The patient BMI is outside the recommended range and we recommended/discussed today to utilize a diet/exercise program to get back into the appropriate range. Today we encouraged roughly a 1 lb per week weight loss with initial goal of 5% weight loss. The initial step is to document everything that is consumed into a food diary. Studies have shown that patients can lose up to 2x the weight by keeping track of foods. We discussed BEE today and discussed reasonable goal to realize weight loss. Discussed if eating out for a meal, consider cutting food in half and placing into to-go container. Individually portion any foods coming into the home based on package. Consider using smaller plates. Consider drinking 12 oz of water 30 minutes before meal as way to suppress appetite. Cut back on soft drinks/juices. Discussed 1 can of regular soft drink has roughly 150-170 Calories per day. Increase exercise as able. It is recommended to try to exercise minimum 10 minutes 5 days per week. The goal over the next 2-4 weeks is to walk 30 minutes per day 5 days per week at pace difficult to hold conversation. Medications that may provide some benefit to weight loss include metformin, topamax, phentermine, Qsymia, Belviq (lorcaserin), Contrave ( Buproprion/naltrexone) and a few others for Binge eating. Also discussed some of the FAD diets and recommended general portion reduction instead of special dietary changes.Apps that may be of benefit include DoorDash, Lose it. Healthier choices included fruits/grains/nuts instead of process food. Offered referral to signing teacher and bariatrics. 1/2 Pack per day: Tobacco Cessation discussed today for 2 minutes. We reviewed lifestyle choices and discussed quitting. Ready to quit status discussed. The risks and hazards of continued tobacco abuse were discussed with the patient today and total tobacco cessation as recommended. It was clearly and unambiguously explained that continued tobacco usage will adversely affect overall morbidity and mortality of the patient. Patient was informed that tobacco use can lead to numerous cancers, worsening of cardiovascular and pulmonary systems and that lung damage is often permanent and irreversible. I advised the patient to inform me if any further assistance is requested, as we can offer counseling services, nicotine replacement inhaled, patch, lozenge, gum , or prescription medications to include Chantix or Wellbutrin for assistance. I will reassess the interest in tobacco cessation at the next and all subsequent visits. Foreign body finger: Removed in office, tolerated well. DVT Prophy: Lovenox 40 Diet: ADA 1800kcal Activity: Up ad luz Disposition: Expected LOS 24-48 hours. Improve glucose control. Ideally 250- 300 before d/c and 200-250 would be even better. CBC/CMP in am. Windows Mobile Developer to meet with patient. He needs regular routine f/u. I did not even know he went to ED. He feels okay other than tired and vision is up/down w/ glucose of 400- 600. F/U with him in the am. Consider d/c tomorrow if glucose better through night/tomorrow. Moderate complexity with 55 minutes spent on this admission today.
[2019-01-06] MEDS ORDERED: NON-FORMULARY MEDICATION (Lisinopril [Lisinopril] 40 MG) PO SCH (12:30)
[2019-01-06] MEDS ORDERED: NON-FORMULARY MEDICATION (Albuterol Sulfate [Ventolin Hfa] 2 PUFF) IH SCH (12:30)
[2019-01-06] MEDS: SODIUM CHLORIDE 1,000 ML IV SCH ×2 (12:38→20:24)
[2019-01-06] MEDS ORDERED: PROAIR HFA IH PRN (13:09)
[2019-01-06] MEDS ORDERED: LANTUS SUBCUT SCH (13:30)
[2019-01-06] MEDS ORDERED: HUMALOG SUBCUT PRN (13:30)
[2019-01-06] MEDS: ZANTAC PO SCH ×2 (13:59→20:22)
[2019-01-06] MEDS: LOVENOX SUBCUT SCH (14:00)
[2019-01-06] MEDS: HUMALOG SUBCUT PRN ×4 (16:03→22:12)
[2019-01-06] MEDS: CATAPRES PO SCH (20:21)
[2019-01-06] MEDS ORDERED: NON-FORMULARY MEDICATION (Clonidine Hcl [Clonidine Hcl] 0.2 MG) PO SCH (21:00)
[2019-01-07] MEDS: HUMALOG SUBCUT PRN ×12 (00:16→22:25)
[2019-01-07] MEDS: SODIUM CHLORIDE 1,000 ML IV SCH ×3 (04:03→21:12)
--- NOTE | 2019-01-07 07:18 | PCM.PROG ---
Subjective: 38 yo CM with history of DM 2 insulin dependent poorly controlled, extreme morbid obesity, Essential HTN, hyperlipidemia, poor hygiene hospital day #2. Fluids have run at 125ml/hour NS overnight. Labs this am showed WBC 7.66, hgb 15, plt 313. Sodium 135.6, K+ 4.11, CL 103, BUN 17.1, CR 0.69 and glucose 178.2. ALT mildly elevated at 66.9. He has remained afebrile, pulse 76-80, BP markedly improved from the 146/81 at admit to normotension 131/69, 130/74, 129/ 66. I suspect he is always running on dehydrated state. RR 16-20. He has had # 2 voids, no documented BM> Last BM 01/05/19 normal for him. Accuchecks listed 456/433/384/266/234/274/216/280/156/175. My goal for today is to get an idea of how much insulin he is needing in addition to his lantus. Since arrival to hospital he has had 03/15////// units of insulin with his q 2 hour draws. At home he gets 7 with each meal, which should be 21 units daily if he eats reasonably and uses his insulin. So far he has used 20 units more than what he has been getting at home and we still have about another 8 hours for a 24 hour period. I will likely discharge him home tomorrow am with lantus 85 units and meal time insulin of 10 units with each meal and continue seeing him weekly to titrate his doses. I have reviewed Telemetry overnight and he is SR/SR w/ BBB. I reviewed November [facility] Case management note and agree with findings. Observation narratives reviewed as well. Nothing else to report at this time. He did complain of Finger swelling this am. He noted he has not felt this good in a long time. His PINEDO is gone. His Vision is better. His appetite is better. BP is better. HR is better. REVIEW OF SYMPTOMS: (Positives bolded) General: weight loss, fever, chills, night sweats, fatigue, appetite loss HEENT: blurry vision, eye pain, eye discharge, dry eyes, decreased vision, sore throat tinnitus, bloody nose, hearin gloss, sinus pain/pressure, ear pain/ pressure. Respiratory: shortness of breath, cough, hemoptysis, wheezing, pleurisy, Cardiovascular: chest pain, PND, palpitation, edema, orthopnea, syncope, swelling of extremities Gastro: Nausea, vomiting, diarrhea, hematemesis, abdominal pain, constipation Genito: hematuria, dysuria, glycosuria, hesitancy, frequency, incontinence [place]: Arthralgia, myalgia, muscle weakness, joint swelling, NSAID use Skin: rash, pruritis, sores, nail changes, skin thickening, change in wart/mole, C/O Finger swelling. Neuro: Migraine, numbness, ataxia, tremor, vertigo, weakness, memory loss, Irritability, dizziness Endocrine: excessive thirst, polyuria, cold intolerance, heat intolerance, goiter Psychiatric: depression, anxiety, anti-depressants, alcohol abuse, drug abuse, insomnia, change in sleep pattern and mood changes Heme/lymph: easy bruising, bleeding gums, blood clots, swollen glands, lymphedema, Allergic/immune: allergic rhinitis, hay fever, asthma, hives Objective: Vital Signs - 24 hr 01/06/19 01/06/19 01/06/19 11:16 14:00 18:00 Temperature 98.4 F 98.2 F 98.0 F Pulse Rate 99 H 92 H 83 Respiratory 16 18 18 Rate Blood Pressure 146/81 H 131/69 O2 Sat by Pulse 93 L 95 99 Oximetry 01/06/19 01/07/19 21:21 06:00 Temperature 98.4 F 98.8 F Pulse Rate 80 76 Respiratory 17 20 Rate Blood Pressure 130/74 129/76 O2 Sat by Pulse 99 99 Oximetry Constitutional: Appearance-No acute distress, Consistent with stated age. Orientation- Oriented x 3, alert Build and Nutrition-MORBIDLY OBESE MALE General- Finger is healing right digit 3. Hyperpigmented. Better ROM. He got a good nights sleep. Vitals appear normal/stable. Integumentary: General- He has hemosiderin staining bilateral LE. Numerous skin tags bilateral neck, axilla. HE has chronic venous stasis, varicose veins No other open lesions, no decubitus ulcers. Finger is healing. He had splinter digit 2 of left hand distal phalanx. I removed this in office today prior to hospital stay. Toleated this well. ENMT: Hearing Assessment-normal to conversational speech. Nose and sinus- No sinus tenderness along frontal/maxillary region. External appearance normal and midline. Nares- bilateral quiet airflow, no discharge. Nasal mucosa- No bleeding noted and no ulcerations observed. [place], moist. Turbinates non boggy. Lips- normal color, moist without cracks/lesions Oral Cavity/Palate- hard/soft palate intact without lesions, oral mucosa pink and moist. Tongue normal midline. Oropharynx- no pharyngeal erythema, Uvula midline. No post nasal drip. No exudate. Salivary glands- Non tender to palpation CHEST/LUNG: Inspection- symmetric chest wall no pectus deformity. Normal effort , no distress, no use of accessory muscles. Palpation- nontender sternum, ribline. No abnormal pulsations. Auscultation- Breath sounds diminished throughout all lung streeter. Decreased effort. Lungs with scattered coarse sounds better this am, deeper inspiration Adventitious sounds- No appreciable wheezes, rales, rhonch at this time. CARDIOVASCULAR: Carotid artery- normal, no bruits or abnormal pulsations. Jugular vein- no pulsations. Palpation/Percussion- Normal PMI, no palpable thrill Auscultation- Regular rate and rhythm. No murmur noted in sitting, Extremities - no digital clubbing, cyanosis, edema, increased warmth. ABDOMEN: Inspection- normal and no visible pulsations. Normal contour. Auscultation- Bowel sounds normal, no abdominal bruits. Palpation/Percussion- soft, non-tender, no rebound tenderness, no rigidity (guarding), no jar tenderness, no masses. Peripheral Vascular: Lower extremity- Normal temperature with pink nailbeds. He has hemosiderin staining. Bilteral UE and LE with scattered follicular process with hyperpigmented macules. Pedal hair reduced. Edema- edema bilateral legs 1+ to mid ruiz appears chronic. Unchanged. Upper extremity: No erythema of digit 3 on right. He reports edema but it looks unchanged. No e/o infection at this time. Neurological: General- Moves all 4 extremities symmetrically. Symmetrical face and body posture. Cranial nerves- individually evaluated II-XII and intact. PERRLA, Normal EOMI, visual/special senses appear intact, Face is symmetrical and normal sensation/movement, normal tongue, normal strength/posture of neck musculature. Neuropsych: Oriented- Person, place, time. (AAOx3), Low functioning understanding. Mood/affect- normal and congruent. Able to articulate well. Speech-Normal speech, normal rate, normal tone, normal use of language, volume and coherence. Thought content- basic computations and understanding. Low education, knowledge appears limited. and apply abstract thought/reason. Lymphatic: Head/Neck- normal size and non tender to palpation. Laboratory Last Values WBC 7.66 K/ul (4.2-10.2) 01/07/19 05:00 RBC 5.37 10^6/ul (4.70-6.10) 01/07/19 05:00 Hgb 15.0 g/dl (14.0-18.0) 01/07/19 05:00 Hct 45.2 % (42.0-52.0) 01/07/19 05:00 MCV 84.2 fl (80.0-94.0) 01/07/19 05:00 MCH 27.9 pg (27.0-31.0) 01/07/19 05:00 MCHC 33.2 (31.8-35.4) 01/07/19 05:00 RDW Coeff of Joselin 13.2 % (11.6-14.8) 01/07/19 05:00 Plt Count 313 10^3/uL (140-440) 01/07/19 05:00 Immature Gran % (Auto) 0.4 % (0.0-5.0) 01/07/19 05:00 Neut % (Auto) 59.8 01/07/19 05:00 Lymph % (Auto) 27.7 (10.0-50.0) 01/07/19 05:00 [place] % (Auto) 6.8 (0-10) 01/07/19 05:00 Eos % (Auto) 4.6 % (0.0-7.0) 01/07/19 05:00 Baso % (Auto) 0.7 % (0.0-3.0) 01/07/19 05:00 Immature Gran # (Auto) 0.0 (0.0-1.0) 01/07/19 05:00 Neut # (Auto) 4.6 K/ul (2.0-6.9) 01/07/19 05:00 Lymph # (Auto) 2.1 K/uL (0.60-3.4) 01/07/19 05:00 [place] # (Auto) 0.5 K/uL (0.4-2.0) 01/07/19 05:00 Eos # (Auto) 0.4 K/ul (0.0-0.7) 01/07/19 05:00 Baso # (Auto) 0.1 K/uL (0-0.2) 01/07/19 05:00 Sodium 135.6 mmol/L (134.5-145) 01/07/19 05:00 Potassium 4.11 mmol/L (3.5-5.1) 01/07/19 05:00 Chloride 103.4 mmol/L (98-107) 01/07/19 05:00 Carbon Dioxide 25.4 mmol/L (22-30.0) 01/07/19 05:00 Anion Gap 10.91 01/07/19 05:00 BUN 17.1 mg/dL (9-20) 01/07/19 05:00 Creatinine 0.69 mg/dL (0.60-1.10) 01/07/19 05:00 Estimated GFR (MDRD) 128.00 mL/min 01/07/19 05:00 BUN/Creatinine Ratio 24.78 01/07/19 05:00 Glucose 178.2 mg/dL (74-106) H 01/07/19 05:00 Calcium 8.87 mg/dL (8.4-10.2) 01/07/19 05:00 Total Bilirubin 0.77 mg/dL (0.2-1.3) 01/07/19 05:00 AST 29.9 U/L (17-59) 01/07/19 05:00 ALT 66.9 U/L (0-50) H 01/07/19 05:00 Alkaline Phosphatase 97.8 U/L (38-126) 01/07/19 05:00 Total Protein 6.69 g/dL (6.3-8.2) 01/07/19 05:00 Albumin 3.70 g/dL (3.5-5.0) 01/07/19 05:00 Globulin 2.99 01/07/19 05:00 Albumin/Globulin Ratio 1.23 01/07/19 05:00 (1) Diabetes mellitus with hyperglycemia Status: Acute Code(s): E11.65 - TYPE 2 DIABETES MELLITUS WITH HYPERGLYCEMIA SNOMED Code(s): 97525051 (2) Smokes 1/2 pack a day or less Status: Acute Code(s): F17.210 - NICOTINE DEPENDENCE, CIGARETTES, UNCOMPLICATED SNOMED Code(s): 325099693 (3) BMI 50.0-59.9, adult Status: Inactive Code(s): Z68.43 - BODY MASS INDEX (BMI) 50-59.9, ADULT SNOMED Code(s): 381312724 (4) Essential (primary) hypertension Status: Inactive Code(s): I10 - ESSENTIAL (PRIMARY) HYPERTENSION SNOMED Code (s): 02743234 (5) Hyperlipidemia Status: Inactive Code(s): E78.5 - HYPERLIPIDEMIA, UNSPECIFIED SNOMED Code(s) : 53126442 (6) Foreign body finger Status: Acute Code(s): S60.459A - SUPERFICIAL FOREIGN BODY OF UNSPECIFIED FINGER, INIT ENCNTR SNOMED Code(s): 545012584 Plan: Diabetes 2 A1C goal of 6-7% with hyperglycemia, intermediate insulin: Improving. Total so far of 40 units of humalog have been used. Glucose now in the sub 200 range which is ideal. We will increase his lantus today to 85 units. I will continue to check his glucose q 2 hours so I can get a 24 hour need. I suspect he will ultimately be discharged on the 85 units plus 12 units with each meal to start (this is increased from the 70 units that he was getting. This should account for a majority of the patient needs. We will continue to see him weekly to titrate his sugars. I will have him meet with DM educator. Sugars have dropped from 456 to 175 this am. He feels better. Plan may be d/c this pm vs tomorrow am. I would like to get data up until this afternoon to see how he is doing. Discussed again that I recommend once yearly eye evaluation by optometry or ophthalmology. Good foot health discussed and foot exam recommended with each visit. Recommended to monitor toe health, wear good shoes, cut nails straight across and tend calluses as listed. Take medications as encouraged. Monitor blood sugars as encouraged and bring log to future meetings. Weight needs to be monitored. Monitor portions and caloric intake. So far he has had 40 units of rapid insulin. At the 24 hour marke I would like to estimate the 1800 rule (1800/insulin). - Hospital Day 2: Continue Admit observation status. - Telemetry reviewed, continue - Basaglar to 85 units daily - Accucheck q 2 hours - Sliding scale per protocol: Calculate 24 hour insulin needs and adjust at discharge. Keep weekly f/u as OP. - CBC in am 6 if remains in hospital - CMP in am 01/08 if remains in hospital - A1C 11.81 11/15/18. - Plan unchanged: Monitor 24 hour insulin and discharge with increased insulin after I see how many total units he needs in next 24 hours. - Slide Fastener [employer] Assembler recommended. Essential HTN: Chronic/stable and now at goal of <140/90. I suspect some dehydration was at work. Stable. [place] weight for him was 156 lb and adjusted was 239 and actual was 360. Maintenance rate of 111ml/hour, 1.5x maintenance was 166. I will continue 125ml/hour. Hyperlipidemia: ON statin, chronic. LFT stable. Needs to continue this agent. BMI 50-59: He is aware of need to work on weight and active weight loss. 1/2 Pack per day: We again discussed tobacco Cessation. Today was 1 minutes. We reviewed lifestyle choices and discussed quitting. Ready to quit status discussed. The risks and hazards of continued tobacco abuse were discussed with the patient today and total tobacco cessation as recommended. It was clearly and unambiguously explained that continued tobacco usage will adversely affect overall morbidity and mortality of the patient. Patient was informed that tobacco use can lead to numerous cancers, worsening of cardiovascular and pulmonary systems and that lung damage is often permanent and irreversible. I advised the patient to inform me if any further assistance is requested, as we can offer counseling services, nicotine replacement inhaled, patch, lozenge, gum , or prescription medications to include Chantix or Wellbutrin for assistance. I will reassess the interest in tobacco cessation at the next and all subsequent visits. Foreign body finger: Removed in office 01/06/19, tolerated well. No complications , no concerns. DVT Prophy: Lovenox 40 Diet: ADA 1800kcal Activity: Up ad luz Disposition: Expected D/C this pm vs am 01/08/19. Sugars are improved. I want to get 24 hour insulin check. Lantus to 85 units today. This should allow for better overall control. He may ultimately need range of ~100 units of basaglar daily. Improving glucose control. CBC/CMP in am tomorrow if still here. Slide Fastener Chain Assembler to meet with patient. He needs regular routine f/u, we will continue weekly visits. I did not even know he went to ED recently and I discussed his need to keep appt and to f/u with me before ER unless it is emergency. He feels better this am, he has not had glucose like these in a very long time. Blurred vision resolved, no PINEDO. BP stable, HR stable, vitals stable. Tele looked good. Moderate complexity with 55 minutes spent on this admission today. 35 minutes spent rounding on patient today, not to include documentation.
[2019-01-07] MEDS: CATAPRES PO SCH ×2 (08:31→20:24)
[2019-01-07] MEDS: LIPITOR PO SCH (08:32)
[2019-01-07] MEDS: ZANTAC PO SCH ×2 (08:32→20:24)
[2019-01-07] MEDS: HYDROCHLOROTHIAZIDE PO SCH (08:32)
[2019-01-07] MEDS: PROZAC PO SCH (08:33)
[2019-01-07] MEDS: ZESTRIL PO SCH (08:33)
[2019-01-07] MEDS: LOVENOX SUBCUT SCH (08:35)
[2019-01-07] MEDS: LANTUS SUBCUT SCH (08:37)
[2019-01-07] MEDS ORDERED: NON-FORMULARY MEDICATION (Atorvastatin Calcium [Lipitor] 20 MG) PO SCH (09:00)
[2019-01-07] MEDS ORDERED: NORCO 7.5-325 PO PRN (17:35)
[2019-01-08] MEDS: HUMALOG SUBCUT PRN ×5 (00:15→08:27)
[2019-01-08 05:23] VITALS: BP 143/73; TEMP 97.7
[2019-01-08] MEDS: SODIUM CHLORIDE 1,000 ML IV SCH (05:47)
--- NOTE | 2019-01-08 07:43 | PCM.DC ---
Final Diagnosis: Diabetes mellitus with hyperglycemia (Acute): Insulin dependent, Basaglar increased from 70 to 95 units during hospital stay and admelog from 7 TID WM to 10 TID WM. Foreign body finger (Resolved): Resolved Smokes 1/2 pack a day or less (Chronic) Essential HTN (CHRONIC) BMI 50-59 (CHRONIC) Hyperlipidemia (CHRONIC) (1) Diabetes mellitus with hyperglycemia Status: Acute Code(s): E11.65 - TYPE 2 DIABETES MELLITUS WITH HYPERGLYCEMIA SNOMED Code(s): 34013351, 96095447, 185635889 (2) Smokes 1/2 pack a day or less Status: Acute Code(s): F17.210 - NICOTINE DEPENDENCE, CIGARETTES, UNCOMPLICATED SNOMED Code(s): 101171131 (3) BMI 50.0-59.9, adult Status: Inactive Code(s): Z68.43 - BODY MASS INDEX (BMI) 50-59.9, ADULT SNOMED Code(s): 256518475, 488431283 (4) Essential (primary) hypertension Status: Inactive Code(s): I10 - ESSENTIAL (PRIMARY) HYPERTENSION SNOMED Code (s): 86733434 (5) Hyperlipidemia Status: Inactive Code(s): E78.5 - HYPERLIPIDEMIA, UNSPECIFIED SNOMED Code(s) : 47753140 (6) Foreign body finger Status: Acute Code(s): S60.459A - SUPERFICIAL FOREIGN BODY OF UNSPECIFIED FINGER, INIT ENCNTR SNOMED Code(s): 145746046 Reason for Hospitalization: Hyperglycemia 500-600 Prognosis at Discharge: Improved/Good prognosis. He has a poor understanding of his insulin/blood sugars. Lots of education will need to be undertaken to help him to improve this. Weight loss encouraged. Smoking cessation encouraged. Dietary indiscretion discouraged. Meeting with staffing director, DM support groups and bariatric surgery all discussed with him. Condition at Discharge: Improved blood sugars markedly. He required 64 units of insulin in 24 hours in addition to his lantus. His basal insulin increased during stay from 70 to 95 to account for some of this change. In the last 12 hours he has required 28. I will continue weekly visits increasing basaglar by 5-10 units per week until he is regularly under 200. I want him as goal #1 to be <200 for his blood glucose. Medications at Discharge: Ambulatory Orders Medication Instructions Recorded Lancets [Bd Ultra-Fine II] 1 each ACHS #120 each 07/27/18 Insulin Glargine,Hum.rec.anlog 95 unit SQ DAILY 30 Days #5 01/08/19 [Basaglar Kwikpen U-100] insuln.pen Insulin Lispro [Admelog Solostar] 10 unit SQ TIDWM #5 insuln.pen 01/08/19 Lab/Diagnostics: Laboratory Last Values WBC 7.82 K/ul (4.2-10.2) 01/08/19 04:45 RBC 5.53 10^6/ul (4.70-6.10) 01/08/19 04:45 Hgb 15.2 g/dl (14.0-18.0) 01/08/19 04:45 Hct 46.6 % (42.0-52.0) 01/08/19 04:45 MCV 84.3 fl (80.0-94.0) 01/08/19 04:45 MCH 27.5 pg (27.0-31.0) 01/08/19 04:45 MCHC 32.6 (31.8-35.4) 01/08/19 04:45 RDW Coeff of Joselin 13.2 % (11.6-14.8) 01/08/19 04:45 Plt Count 311 10^3/uL (140-440) 01/08/19 04:45 Immature Gran % (Auto) 0.4 % (0.0-5.0) 01/08/19 04:45 Neut % (Auto) 57.6 01/08/19 04:45 Lymph % (Auto) 30.9 (10.0-50.0) 01/08/19 04:45 [place] % (Auto) 6.3 (0-10) 01/08/19 04:45 Eos % (Auto) 4.2 % (0.0-7.0) 01/08/19 04:45 Baso % (Auto) 0.6 % (0.0-3.0) 01/08/19 04:45 Immature Gran # (Auto) 0.0 (0.0-1.0) 01/08/19 04:45 Neut # (Auto) 4.5 K/ul (2.0-6.9) 01/08/19 04:45 Lymph # (Auto) 2.4 K/uL (0.60-3.4) 01/08/19 04:45 [place] # (Auto) 0.5 K/uL (0.4-2.0) 01/08/19 04:45 Eos # (Auto) 0.3 K/ul (0.0-0.7) 01/08/19 04:45 Baso # (Auto) 0.1 K/uL (0-0.2) 01/08/19 04:45 Sodium 136.1 mmol/L (134.5-145) 01/08/19 04:45 Potassium 3.88 mmol/L (3.5-5.1) 01/08/19 04:45 Chloride 102.9 mmol/L (98-107) 01/08/19 04:45 Carbon Dioxide 25.1 mmol/L (22-30.0) 01/08/19 04:45 Anion Gap 11.98 01/08/19 04:45 BUN 15.5 mg/dL (9-20) 01/08/19 04:45 Creatinine 0.75 mg/dL (0.60-1.10) 01/08/19 04:45 Estimated GFR (MDRD) 116.00 mL/min 01/08/19 04:45 BUN/Creatinine Ratio 20.66 01/08/19 04:45 Glucose 173.0 mg/dL (74-106) H 01/08/19 04:45 Calcium 8.98 mg/dL (8.4-10.2) 01/08/19 04:45 Total Bilirubin 0.88 mg/dL (0.2-1.3) 01/08/19 04:45 AST 27.0 U/L (17-59) 01/08/19 04:45 ALT 59.2 U/L (0-50) H 01/08/19 04:45 Alkaline Phosphatase 91.6 U/L (38-126) 01/08/19 04:45 Total Protein 6.63 g/dL (6.3-8.2) 01/08/19 04:45 Albumin 3.64 g/dL (3.5-5.0) 01/08/19 04:45 Globulin 2.99 01/08/19 04:45 Albumin/Globulin Ratio 1.21 01/08/19 04:45 Glucose Trends 01/07/19 01/08/19 Range/Units 05:00 04:45 Glucose 178.2 H 173.0 H (74-106) mg/dL Education Provided to Patient and Family: 1. BG education. 2. How to use insulin 3. Sick day insulin use 4. Smoking cessation 5. Weight loss. 6. f/U in office with mt 01/13/19 0800 Follow-ups: 1. Keep appt with mt 01/13/19 at 8 am. Disposition: HOME SELF-CARE Hospital Course: Patient was admitted on 01/06/19 with glucose reading of [facility] in office. Direct admitted to office after review of ER document from earlier in week with glucose >600. I monitored his glucose over the stay and used a sliding scale/ correctional insulin with accucheck every 2 hours. Accuchecks were 456/433/384/ 266/234/274/216/280/156/175/175/223/261/263/340/312/243/215/198/192/177/178/ 146. Sugars improved/trended down throughout the hospital stay. CBC/CMP remained okay throughout hospital stay. ALT mildly elevated, improving, likely fatty liver. No imaging was done throughout hospital stay. He was on tele and was SR w/ BBB to ST w/ BBB. [place] resolved, never CP, Vision changes resolved, he felt a lot better in general. Finger pain was still present from previous wound. He had a splinter in digit 2 of left hand distally that was removed before admit by me. Lovenox for DVT prophy entire stay. He had a BM in hospital, he had a shower in hospital and Uout was good/stable and never in question based on history/presentation. He was given fluids 125ml/hour during hospital stay. BP initially became normalized but then returned to 147/75 and 143/73. Telemetry monitored/reviewed and stable throughout stay. Nursing documentation from the observational stay was reviewed personally. He received 64 units of humalog in 24 hours from 01/06-01/07. I did increase his lantus from 70 to 85 yesterday and will discharge him with 95 units daily and increase his meal time admelog to 10 units with meals. If not eating, do not take admelog. Continue metformin. Would like to increase this. Smoking cessation d/w patient and encouraged. Weight loss highly important. Meet with staffing director, may need multiple visits with DM educator. He has improved, hospitalization benefits have been maximized and he will be d/c to home today with f/u with me weekly in office until BG regularly <200. Weight goal #1 is BMI <50. Consider bariatric f/u and referral. He was ready for d/c this am. Vital Signs - 24 hr 01/07/19 01/07/19 01/08/19 14:00 21:39 05:21 Temperature 98 F 98 F 97.7 F Pulse Rate 81 85 68 Respiratory 18 20 20 Rate Blood Pressure 127/71 147/75 H 143/73 H O2 Sat by Pulse 99 94 L 97 Oximetry Constitutional: UNCHANGED from 01/07/19 documentation Appearance-No acute distress,Resting in bed. Consistent with stated age. Orientation- Oriented x 3, alert Build and Nutrition-MORBIDLY OBESE MALE General- Finger is healing right digit 3. Hyperpigmented. Better ROM. He got a good nights sleep. Vitals appear normal/stable. Integumentary: General- He has hemosiderin staining bilateral LE. Numerous skin tags bilateral neck, axilla. HE has chronic venous stasis, varicose veins No other open lesions, no decubitus ulcers. Finger is healing. He had splinter digit 2 of left hand distal phalanx. I removed this in office today prior to hospital stay. Toleated this well. ENMT: Hearing Assessment-normal to conversational speech. Nose and sinus- No sinus tenderness along frontal/maxillary region. External appearance normal and midline. Nares- bilateral quiet airflow, no discharge. Nasal mucosa- No bleeding noted and no ulcerations observed. [place], moist. Turbinates non boggy. Lips- normal color, moist without cracks/lesions Oral Cavity/Palate- hard/soft palate intact without lesions, oral mucosa pink and moist. Tongue normal midline. Oropharynx- no pharyngeal erythema, Uvula midline. No post nasal drip. No exudate. Salivary glands- Non tender to palpation CHEST/LUNG: Inspection- symmetric chest wall no pectus deformity. Normal effort , no distress, no use of accessory muscles. Palpation- nontender sternum, ribline. No abnormal pulsations. Auscultation- Breath sounds diminished throughout all lung streeter. Decreased effort. Lungs with scattered coarse sounds better this am, deeper inspiration Adventitious sounds- No appreciable wheezes, rales, rhonch at this time. CARDIOVASCULAR: Carotid artery- normal, no bruits or abnormal pulsations. Jugular vein- no pulsations. Palpation/Percussion- Normal PMI, no palpable thrill Auscultation- Regular rate and rhythm. No murmur noted in sitting, Extremities - no digital clubbing, cyanosis, edema, increased warmth. ABDOMEN: Inspection- normal and no visible pulsations. Normal contour. Auscultation- Bowel sounds normal, no abdominal bruits. Palpation/Percussion- soft, non-tender, no rebound tenderness, no rigidity (guarding), no jar tenderness, no masses. Peripheral Vascular: Lower extremity- Normal temperature with pink nailbeds. He has hemosiderin staining. Bilteral UE and LE with scattered follicular process with hyperpigmented macules. Pedal hair reduced. Edema- edema bilateral legs 1+ to mid ruiz appears chronic. Unchanged. Upper extremity: No erythema of digit 3 on right. He reports edema but it looks unchanged. No e/o infection at this time. Neurological: General- Moves all 4 extremities symmetrically. Symmetrical face and body posture. Cranial nerves- individually evaluated II-XII and intact. PERRLA, Normal EOMI, visual/special senses appear intact, Face is symmetrical and normal sensation/movement, normal tongue, normal strength/posture of neck musculature. Neuropsych: Oriented- Person, place, time. (AAOx3), Low functioning understanding. Mood/affect- normal and congruent. Able to articulate well. Speech-Normal speech, normal rate, normal tone, normal use of language, volume and coherence. Thought content- basic computations and understanding. Low education, knowledge appears limited. and apply abstract thought/reason. Lymphatic: Head/Neck- normal size and non tender to palpation. Plan: 1. D/C Home 2. Basaglar to 95 units daily RX to pharmacy 3. Admelog to 10 units daily RX to pharmacy 4. Will work on outpatient DM education 5. Weight loss encouraged. 6. Diet ADA 1800kcal recommended 7. Activity Ad luz 8. Resume normal work/duties. 9. Follow-up in clinic as listed. >30 minutes spent with patient on d/c this am not to include documentation.
[2019-01-08] MEDS: LANTUS SUBCUT SCH (08:28)
[2019-01-08] MEDS: PROZAC PO SCH (08:29)
[2019-01-08] MEDS: HYDROCHLOROTHIAZIDE PO SCH (08:29)
[2019-01-08] MEDS: ZANTAC PO SCH (08:29)
[2019-01-08] MEDS: CATAPRES PO SCH (08:29)
[2019-01-08] MEDS: LIPITOR PO SCH (08:30)
[2019-01-08] MEDS: ZESTRIL PO SCH (08:30)
[2019-01-08] MEDS: LOVENOX SUBCUT SCH (08:32)
== END 2019-01-08 08:43 | disposition home or self-care (01) ==
LOC: MEDSURG B 11:02
PROVIDERS: ADMIT Family Medicine; ATTEND Family Medicine
DX: E11.65 Type 2 diabetes mellitus with hyperglycemia (principal); I10 Essential (primary) hypertension; E78.5 Hyperlipidemia, unspecified; S60.459A Superficial foreign body of unspecified finger, initial encounter; F17.210 Nicotine dependence, cigarettes, uncomplicated; Z68.43 Body mass index [BMI] 50.0-59.9, adult
CPT/HCPCS: 36415; 80053; 82962; 85025

== ENCOUNTER 2019-01-13 12:35 | Outpatient (CLI) | payer OTHER | END 2019-01-13 12:36 | disposition home or self-care (01) | LOC: RHC-LAB 12:35 → FCC-LAB 12:36 | PROVIDERS: ATTEND Family Medicine | DX: L08.9 Local infection of the skin and subcutaneous tissue, unspecified (principal) | CPT/HCPCS: 87070; 87186 ==